=== PATIENT | male | born 1965 | race Caucasian/White ===

== ENCOUNTER → 2020-08-17 09:11 | Outpatient (BNVA) | payer OTHER, SELFPAY | PROVIDERS: PCP Internal Medicine; Visit Provider Urology | DX: N40.1 Benign prostatic hyperplasia with lower urinary tract symptoms (principal); R39.14 Feeling of incomplete bladder emptying; N32.89 Other specified disorders of bladder | CPT/HCPCS: 51798; 81002 ==

== ENCOUNTER → 2021-02-20 11:13 | Outpatient (BNVA) | payer OTHER, SELFPAY | PROVIDERS: PCP Internal Medicine; Visit Provider Urology ==

== ENCOUNTER 2021-03-26 06:03 | Day surgery (SDC) | payer OTHER, SELFPAY ==
[2021-03-26] VITALS (10 sets, daily range): BP systolic 96–121; BP diastolic 55–67; PULSE 78–88; RESP 15–17; TEMP 36.1–36.8; O2SAT 96–100; BMI 24.4
--- NOTE | 2021-03-26 07:07 | HO.ANESPROP2 ---
HPI - Anesthesia Eval Consult details Narrative: 56 M laser ablation prostate with green light PMFSH Active Problems Active Problems: All Active Problems (Updated 08/17/20 @ 09:49 by Mateus Grimm MD) Feeling of incomplete bladder emptying (Acute) Bladder wall thickening (Acute) Benign prostatic hyperplasia with lower urinary tract symptoms (Acute) Past Medical History Medical History Benign prostatic hyperplasia with lower urinary tract symptoms Bladder wall thickening Feeling of incomplete bladder emptying Scoliosis Functional capacity: independent ambulation Family History Family history of problems with anesthesia: No Surgical History Surgical History (Updated 03/26/21 @ 06:26 by Carlene Gaffney RN) Hx of colonoscopy History of Problems with Anesthesia: No Social History Social History Patient Tobacco Use Status: Never used Tobacco Use of substances other than those prescribed or required for medical reasons: No Are you DNR?: No Advance Directives: No Advance Directives Information Provided: Yes Meds Allergies Allergy/AdvReac Type Severity Reaction Status Date / Time No Known Allergies Allergy Verified 03/26/21 06:43 Active Medications: Current Medications Fentanyl (Fentanyl Citrate/Pf 100 Mcg/2 Ml Vial) 25 mcg IVPUSH Q5M PRN; Protocol PRN Reason: Pain, Moderate (Pain Scale 4-6 Promethazine HCl 12.5 mg/ (Sodium Chloride) 50.5 mls @ 202 mls/hr IV ONCE PRN PRN Reason: Nausea and Vomiting Home Medications Medication Instructions Recorded Confirmed Last Taken Type clotrimazole-betamethasone 1 appl TOPICAL BID 08/17/20 Unknown History %-0.05 % topical cream Exam Exam Date and Time: March 26, 2021 0707 Height,Weight and Vital Signs: Height 6 ft Weight 81.647 kg Last Vital Signs Temp 98.0 F 03/26/21 06:22 Pulse 88 03/26/21 06:22 Resp 16 03/26/21 06:22 BP 114/64 03/26/21 06:22 Pulse Ox 98 03/26/21 06:22 Airway Mallampati Class: III TM Dist: >3cm Neck ROM: Full (Neck spasms sometimes ) Loose/Missing/Broken Teeth: Yes (Chipped and missing , crowns ) Heart: rrr Lungs: bl breath sounds Assessment and Plan Assessment Anesthesia Assessment: Anesthesia Plan Discussed Final Anesthetic Review Family History of Problems with Anesthesia: No History of Problems with Anesthesia: No NPO: Yes ASA Class: II Final Preanesthetic Review: Annie Risks/Benef Reviewed Patient Risk: Intermediate Procedure Risk: Intermediate Anesthetic Plan Anesthetic Plan: GA Disposition: Standard PACU
[2021-03-26] MEDS: Lactated Ringers 1,000 ML 80 ML IVCONT (07:20)
--- NOTE | 2021-03-26 07:38 | MHC.SHP ---
Pre-Procedural Eval Section A Date of Service: 03/26/21 The patient is an INPATIENT: No Changes since office visit: No Cold of Flu in the past 2 weeks, No New Medical Problems, No Changes in Medication and No Patient answered all questions The History & Physical has been completed within 30 days and I have reviewed it.: Yes Section B Chief Complaint: benign prostatic hyperplasia Allergies: Allergies Allergy/AdvReac Type Severity Reaction Status Date / Time No Known Allergies Allergy Verified 03/26/21 06:43 Plan Diagnosis/Plan: Unchanged (green light laser prostatectomy) I have reviewed the history and physical and performed a pertinent physical examination on my patient. No changes have occurred unless specified.
--- NOTE | 2021-03-26 08:22 | P.OP_ITS ---
Operative Note Operative Note Date of Service: 03/26/21 Narrative: PreOperative Diagnosis: Bladder outlet obstruction Post Operative Diagnosis: Bladder outlet obstruction Procedure: GreenLight laser enucleation of the prostate Surgeon: Dr Mateus Grimm Anesthesia: General Indications for procedure: History of bladder outlet obstruction. Treated with alpha-eduardo and other medications. Still with symptoms. On cystoscopy in office has left lateral lobe impingement with high riding bladder neck. Recommendation for prostate procedure with laser enucleation of prostate. It has been discussed. Focus was placed on development of retrograde examination which is a normal part of this procedure. Procedure: After informed consent was verified the patient was brought to the operating room and placed in a supine position. Anesthesia was administered per protocol. Patient was placed in modified dorsal lithotomy position and prepped and draped in a sterile fashion. Safety pause time-out was confirmed. Antibiotics have been given. Twenty-four Georgian laser cystoscope was inserted per urethra. No abnormalities found the anterior posterior urethra. The bladder was filled on both ureteric orifices were seen in normal position away from our area of interest. Using a GreenLight laser settings of 80 w incisions were made at the 5 and 7 o'clock position. They were taken down and then laterally on each side. They were brought from the bladder neck down to the level of the veru. These defined the lateral aspects of the median lobe area. The median lobe was ablated and enucleated tissue removed. Once the median lobe area had been cleaned attention was directed to the lateral lobes. We started with the patient's left lateral lobe. Firstly the 05:00 o'clock groove was further developed. This was moved in the lateral position to undermine the tissue on the lateral side. Focus was then placed on the laser at the 1 o'clock position in developing a secondary groove down to the level of bladder fibers. The intervening tissue between these 2 grooves was removed with a combination of enucleation ablation working from the apex toward the bladder neck. A similar procedure was repeated on the patient's right-hand side. When this was completed debris and pieces of prostate removed from the bladder. Both ureteric orifices were reviewed again in shown to be patent in away from any areas of energy damage. The apical area was reviewed in any stray ooze was controlled. A 22 Georgian 30 cc balloon Redding catheter was placed over stylet into the bladder. Clear efflux was obtained. 30 cc was placed in the balloon and gentle traction was placed. A snap was used to hold tension once the patient will be moved and transported. Once transportation its finish this novel be removed. A belladonna and opiate suppository was placed for postprocedure pain management. He tolerated procedure well was extubated in the operating and transferred in a stable condition to the recovery area. Total laser power 113 kilojoules all, total lasing time 14 minutes 30 seconds Pathology: Prostate tissue Drains: Redding catheter
--- NOTE | 2021-03-26 08:24 | MHC.SHP ---
Pre-Procedural Eval Section A Date of Service: 03/26/21 Section B Chief Complaint: benign prostatic hyperplasia Details of Present Illness: U pH Relevant Family History (Specify if Yes): No Relevant Social History: None Present Medications: see Short Stay Collaborative assessment Medical History: No relevant PMH History of Previous Operations: No relevant previous surgery Allergies: Allergies Allergy/AdvReac Type Severity Reaction Status Date / Time No Known Allergies Allergy Verified 03/26/21 06:43 Review of Systems Sugical H&P ROS: Negative: Constitution, Cardiovascular, Respiratory, Neurological, Psychiatric, Hem-Onc, Allergic/Immunologic, Gastrointestinal, Genitourinary, Musculoskeletal, Integumentary, Endocrine and Eyes/Ears/Nose/Throat Exam Surgical H&P Exam: Normal: HEENT, Normal: Heart, Normal: Lungs, Normal: Extremities, Normal: Abdomen, Normal: Skin and Normal: Neurological Plan Diagnosis/Plan: Unchanged (GreenLight laser prostate) I have reviewed the history and physical and performed a pertinent physical examination on my patient. No changes have occurred unless specified.
[2021-03-26] MEDS: traMADoL HCL 50 MG TABLET PO (09:42)
== END 2021-03-26 11:02 | disposition home or self-care (01) ==
PROVIDERS: PCP Internal Medicine; Visit Provider Urology
PROC: (CPT 52648; principal; 2021-03-26 07:30)
DX: N40.1 Benign prostatic hyperplasia with lower urinary tract symptoms (principal); N32.0 Bladder-neck obstruction; R39.14 Feeling of incomplete bladder emptying; N32.89 Other specified disorders of bladder; M41.9 Scoliosis, unspecified
CPT/HCPCS: 52649; 88305; J1100; J1956; J2250; J2405; J3010

== ENCOUNTER → 2021-03-29 08:59 | Outpatient (BNVA) | payer OTHER, SELFPAY | PROVIDERS: PCP Internal Medicine; Visit Provider Urology | DX: R39.14 Feeling of incomplete bladder emptying (principal) | CPT/HCPCS: 51700; 51798 ==

== ENCOUNTER → 2021-05-08 14:42 | Outpatient (BNVA) | payer OTHER, SELFPAY | PROVIDERS: PCP Internal Medicine; Visit Provider Urology | DX: N40.0 Benign prostatic hyperplasia without lower urinary tract symptoms (principal); N32.89 Other specified disorders of bladder | CPT/HCPCS: 51798 ==

== ENCOUNTER 2022-02-14 09:26 | Outpatient (REF) | payer OTHER, SELFPAY ==
[2022-02-14 11:55] LABS: Prostate Specific Antigen 4.27 ng/mL (<0.05-4.0)
== END 2022-02-14 09:27 | disposition home or self-care (01) ==
LOC: HO.LAB 09:26
PROVIDERS: PCP Internal Medicine; Visit Provider Urology
DX: Z12.5 Encounter for screening for malignant neoplasm of prostate (principal); N40.1 Benign prostatic hyperplasia with lower urinary tract symptoms
CPT/HCPCS: 36415; 84153

== ENCOUNTER 2022-02-21 10:02 | Outpatient (AMB) | payer OTHER, SELFPAY ==
--- NOTE | 2022-02-18 13:46 | MHC.OFFVIS ---
Intake Intake Visit Reasons: 6 Month PSA(set) Intake Note: Patient Is Present for Telephone PSA Follow Up Urology Medication: Finasteride, Tamsulosin Blood Thinner: Allergies No Known Allergies Allergy (Verified 04/11/23 10:04) HPI HPI Comments History of Present Illness Details Juancarlos GOULD is a very pleasant male. They are a patient of Dr Hayes. They are seen in the office today for the following urologic conditions. - lower urinary tract symptoms - nephrolithiasis Telemedicine Evaluation 15 min Consultation Doximity John Video attempted PSA stable Will stop prostate medications Check PSA in 6 months Nephrolithiasis Stable Imaging - 02/25 CT bilateral 3 mm stone, 1.5 cm left renal cyst Lower Urinary Tract Symptoms: Current for the further evaluation of lower urinary tract symptoms Current treatment includes none - prostate intervention 02/25 GreenLight laser - pathology BPH with chronic inflammation Prostate Symptom Score 04/25 , Mild (0-8), Bother 3 06/23 , Mild (0-8), Bother 2. Results from testing include cystoscopy high riding bladder neck (median bar) 06/23 renal/bladder us Yes date 03/18/2018 bladder wall thickening PSA - 09/23 5.4, 02/26 4.3 Prior Prostate Score unknown. Prostate volume 30-50gm. Associated conditions CAD No CVA No diabetes No elevated PSA No erectile dysfunction No hematuria No renal insufficiency No urge incontinence No urinary retention No urinary tract infection No psychiatric diagnosis No Testing at next visit will include bladder scan. Treatment plan - PSA PFSH Medical History Scoliosis Feeling of incomplete bladder emptying Benign prostatic hyperplasia with lower urinary tract symptoms Bladder wall thickening Surgical History Hx of colonoscopy Social History Patient Tobacco Use Status: Never used Tobacco Assessment & Plan Assessment & Plan (1) Renal cyst: Code(s): N28.1 - Cyst of kidney, acquired (2) Benign prostatic hyperplasia with lower urinary tract symptoms: Code(s): N40.1 - Benign prostatic hyperplasia with lower urinary tract symptoms Plan Six-month follow-up imaging and PSA Orders: Orders US renal BI 6 Months N28.1 - Cyst of kidney, acquired PSA,Total (Free>4and<10) 6 Months N40.1 - Benign prostatic hyperplasia with lower urinary tract symptoms Patient Instructions: Imaging studies, laboratory and physical exam results were discussed and reviewed in detail. No major barriers to patient understanding were identified. An opportunity to ask questions regarding the treatment plan was provided. All questions were answered. The patient expressed understanding and agreement with the above treatment plan. The patient is aware they should contact our office by phone for worsening of their current condition or the appearance of new urologic symptoms. Compliance is encouraged with any medications and followup testing that is ordered. It is a privilege to participate in the urologic care of your patient. If you have any questions or concerns regarding treatment for the above conditions, or other urologic issues, please do not hesitate to contact me. The office telephone contact is [phone]. This note is constructed using voice recognition software. While every effort has been made to ensure accuracy baker pie errors may have been included. Yours sincerely, Dr Mateus Grimm MD, [facility] - Urology Providers of Expert, Compassionate Care for the Genitourinary System Telehealth Telehealth Location of provider rendering services: practice address Location of patient: address on file Patient Identification confirmed using: Name, : Yes Telehealth method: voice only Patient verbally consented to treatment: Yes Patient verbally consented to billing insurance company: Yes Patient informed of any privacy concerns related to visit: Yes Coding Level of Care Code Tele Est Pt Level 3 (85248) Diagnoses Renal cyst N28.1 Benign prostatic hyperplasia with lower urinary tract symptoms N40.1
== END 2022-02-21 15:45 | disposition home or self-care (01) ==
LOC: HO.HUSH 10:02
PROVIDERS: PCP Internal Medicine; Visit Provider Urology
DX: N28.1 Cyst of kidney, acquired (principal); N40.1 Benign prostatic hyperplasia with lower urinary tract symptoms
CPT/HCPCS: 99213; 99499

== ENCOUNTER 2022-08-15 15:41 | Outpatient (REF) | payer OTHER, SELFPAY ==
--- NOTE | ~2022-08-15 | US_ITS ---
EXAMINATION: US RETROPERITONEAL LIMITED (RENAL ONLY) CLINICAL INFORMATION: Cyst of kidney. COMPARISON: CT abdomen and pelvis 02/14/2021. Ultrasound abdomen complete 11/05/2019. TECHNIQUE: Real-time imaging of the kidneys. FINDINGS: RIGHT KIDNEY: 10.6 x 4.4 x 5.4 cm (SAG x AP x TRV). The kidney is normal in size, contour, and echogenicity. Renal cortical thickness is normal. No calculi or focal parenchymal lesions. No hydronephrosis. Cannot exclude a trace amount of perinephric fluid inferiorly, nonspecific. LEFT KIDNEY: 11.5 x 6.0 x 4.9 cm (SAG x AP x TRV). The kidney is normal in size, contour, and echogenicity. Renal cortical thickness is normal. No calculi or focal parenchymal lesions. No hydronephrosis. US/US renal BI IMPRESSION: 1. No renal calculi or hydronephrosis of either kidney. 2. Cannot exclude a trace amount of perinephric fluid inferiorly of the right kidney, nonspecific.
== END 2022-08-15 15:42 | disposition home or self-care (01) ==
LOC: HO.US 15:41
PROVIDERS: PCP Internal Medicine; Visit Provider Urology
DX: N28.1 Cyst of kidney, acquired (principal)
CPT/HCPCS: 76775

== ENCOUNTER 2023-04-11 09:41 | Outpatient (AMB) | payer OTHER, SELFPAY ==
--- NOTE | 2023-04-11 10:03 | MHC.OFFVIS ---
Intake Intake Visit Reasons: 6 month u/s (no showed last appt) Intake Note: Patient is Present for Follow Up US/PVR Urology Medication: Finasteride, Tamsulosin Antibiotic Allergies:None Blood Thinners: None PVR: 0 Allergies No Known Allergies Allergy (Verified 04/11/23 10:04) Medication List - Last Reconciled 04/11/23 by Mateus Grimm MD clotrimazole-betamethasone 1-0.05 % appl topical BID finasteride 5 mg PO DAILY 90 days rosuvastatin 10 mg PO DAILY tamsulosin 0.4 mg PO BEDTIME 90 days HPI HPI Comments History of Present Illness Details Juancarlos GOULD is a very pleasant male. They are a patient of Dr Hayes. They are seen in the office today for the following urologic conditions. - lower urinary tract symptoms - nephrolithiasis No recent lab work PVR 0 Last PSA year ago 4.3 Twelve month follow-up PSA Nephrolithiasis Stable Imaging - 02/25 CT bilateral 3 mm stone, 1.5 cm left renal cyst - 08/27 renal ultrasound normal Lower Urinary Tract Symptoms: Current for the further evaluation of lower urinary tract symptoms Current treatment includes none - prostate intervention 02/25 GreenLight laser - pathology BPH with chronic inflammation Prostate Symptom Score 04/25 , Mild (0-8), Bother 3 06/23 , Mild (0-8), Bother 2. Results from testing include cystoscopy high riding bladder neck (median bar) 06/23 renal/bladder us Yes date 03/18/2018 bladder wall thickening PSA - 09/23 5.4, 02/26 4.3 Prior Prostate Score unknown. Prostate volume 30-50gm. Testing at next visit will include bladder scan. Treatment plan - PSA PFSH Medical History Scoliosis Feeling of incomplete bladder emptying Benign prostatic hyperplasia with lower urinary tract symptoms Bladder wall thickening Surgical History Hx of colonoscopy Social History Patient Tobacco Use Status: Never used Tobacco Review of Systems Const Denies chills and Denies fever(s) Card Reports no additional complaints and Denies syncope Resp Denies cough GI Denies abdominal pain and Denies heartburn Reports as per HPI and Denies change in libido Neuro Denies syncope Psych Denies change in libido Endo Denies change in libido Physical Exam Const General: cooperative, healthy appearing, comfortable and no acute distress Orientation/consciousness: patient oriented x3 HEENT Face and sinus: Yes normal facial exam Mouth: moist mucous membranes Neck Neck: Yes normal visual inspection, Yes full ROM and Yes trachea midline Chest Chest palpation & inspection: normal inspection of the chest Resp Effort & Inspection: normal respiratory effort, able to speak in complete sentences and no respiratory distress GI Inspection: Yes normal to inspection Back/Spine/Pelvis Cervical Spine: normal cervical lordosis Thoracic/Lumbar Spine: thoracic and lumbar spine normal to inspection Skin General skin exam: no rashes or lesions noted Neuro General: patient oriented x3, gait normal, tone normal and moves all extremities Extrem General: Yes normal to inspection and Yes capillary refill normal Office Procedures Post Void Residual Post Residual Void Post Void Residual (PVR): 0 54250-Blyr Void Residual by ultrasound Assessment & Plan Assessment & Plan (1) Elevated PSA: Code(s): R97.20 - Elevated prostate specific antigen [PSA] (2) Benign prostatic hyperplasia with lower urinary tract symptoms: Code(s): N40.1 - Benign prostatic hyperplasia with lower urinary tract symptoms Plan Twelve month follow-up Orders: Orders Prostate Specific Antigen Today R97.20 - Elevated prostate specific antigen [PSA] AMB Post Void Residual by ultrasound Today N40.1 - Benign prostatic hyperplasia with lower urinary tract symptoms Prostate Specific Antigen 364 Days R97.20 - Elevated prostate specific antigen [PSA] Patient Instructions: Imaging studies, laboratory and physical exam results were discussed and reviewed in detail. No major barriers to patient understanding were identified. An opportunity to ask questions regarding the treatment plan was provided. All questions were answered. The patient expressed understanding and agreement with the above treatment plan. The patient is aware they should contact our office by phone for worsening of their current condition or the appearance of new urologic symptoms. Compliance is encouraged with any medications and followup testing that is ordered. It is a privilege to participate in the urologic care of your patient. If you have any questions or concerns regarding treatment for the above conditions, or other urologic issues, please do not hesitate to contact me. The office telephone contact is [phone]. This note is constructed using voice recognition software. While every effort has been made to ensure accuracy plaster form maker errors may have been included. Yours sincerely, Dr Mateus Grimm MD, [facility] - Urology Providers of Expert, Compassionate Care for the Genitourinary System Coding Level of Care Code Est Pt Level 4 (28078) Diagnoses Elevated PSA R97.20 Benign prostatic hyperplasia with lower urinary tract symptoms N40.1 CPT Codes Post Residual Void - PVR CPT Code: 20241-Lozp Void Residual by ultrasound ([id number])
== END 2023-04-11 10:21 | disposition home or self-care (01) ==
PROVIDERS: PCP Internal Medicine; Visit Provider Urology
DX: R97.20 Elevated prostate specific antigen [PSA] (principal); N40.1 Benign prostatic hyperplasia with lower urinary tract symptoms
CPT/HCPCS: 99213

== ENCOUNTER 2023-04-11 09:41 | Outpatient (REF) | payer OTHER, SELFPAY | END 2023-04-11 09:42 | disposition home or self-care (01) | LOC: HO.LAB 09:41 | PROVIDERS: PCP Internal Medicine; Visit Provider Urology | DX: Z12.5 Encounter for screening for malignant neoplasm of prostate (principal); N40.1 Benign prostatic hyperplasia with lower urinary tract symptoms; R97.20 Elevated prostate specific antigen [PSA] | CPT/HCPCS: 36415; 51798; 84153 ==

== ENCOUNTER 2023-07-10 13:54 | Outpatient (AMB) | payer OTHER, SELFPAY ==
--- NOTE | 2023-07-10 14:00 | A.OFFVIS_ITS ---
Intake Intake Visit Reasons: abnormal imaging Allergies No Known Allergies Allergy (Verified 04/11/23 10:04) HPI HPI Comments History of Present Illness Details Juancarlos GOULD is a very pleasant male. They are a patient of Dr Hayes. They are seen in the office today for the following urologic conditions. - lower urinary tract symptoms - nephrolithiasis CT scan - bladder base thickening with BPH Concern regarding question of bladder base thickening versus intrusion of prostate Will repeat cystoscopy Nephrolithiasis Stable Imaging - 02/25 CT bilateral 3 mm stone, 1.5 cm left renal cyst - 08/27 renal ultrasound normal Lower Urinary Tract Symptoms: Current for the further evaluation of lower urinary tract symptoms Current treatment includes none - prostate intervention 02/25 GreenLight laser - pathology BPH with chronic inflammation Prostate Symptom Score 04/25 , Mild (0-8), Bother 3 06/23 , Mild (0-8), Bother 2. Results from testing include cystoscopy high riding bladder neck (median bar) 06/23 renal/bladder us Yes date 03/18/2018 bladder wall thickening PSA - 09/23 5.4, 02/26 4.3, 04/30 3.0 Prior Prostate Score unknown. Prostate volume 30-50gm. Testing at next visit will include bladder scan. Treatment plan - PSA PFSH Medical History Scoliosis Feeling of incomplete bladder emptying Benign prostatic hyperplasia with lower urinary tract symptoms Bladder wall thickening Surgical History Hx of colonoscopy Social History Patient Tobacco Use Status: Never used Tobacco Review of Systems Const Denies chills and Denies fever(s) Card Reports no additional complaints and Denies syncope Resp Denies cough GI Denies abdominal pain and Denies heartburn Reports as per HPI and Denies change in libido Neuro Denies syncope Psych Denies change in libido Endo Denies change in libido Physical Exam Const General: cooperative, healthy appearing, comfortable and no acute distress Orientation/consciousness: patient oriented x3 HEENT Face and sinus: Yes normal facial exam Mouth: moist mucous membranes Neck Neck: Yes normal visual inspection, Yes full ROM and Yes trachea midline Chest Chest palpation & inspection: normal inspection of the chest Resp Effort & Inspection: normal respiratory effort, able to speak in complete sentences and no respiratory distress GI Inspection: Yes normal to inspection Back/Spine/Pelvis Cervical Spine: normal cervical lordosis Thoracic/Lumbar Spine: thoracic and lumbar spine normal to inspection Skin General skin exam: no rashes or lesions noted Neuro General: patient oriented x3, gait normal, tone normal and moves all extremities Extrem General: Yes normal to inspection and Yes capillary refill normal Assessment & Plan Assessment & Plan (1) Feeling of incomplete bladder emptying: Code(s): R39.14 - Feeling of incomplete bladder emptying (2) Benign prostatic hyperplasia with lower urinary tract symptoms: Code(s): N40.1 - Benign prostatic hyperplasia with lower urinary tract symptoms Plan Office cysto Patient Instructions: Imaging studies, laboratory and physical exam results were discussed and reviewed in detail. No major barriers to patient understanding were identified. An opportunity to ask questions regarding the treatment plan was provided. All questions were answered. The patient expressed understanding and agreement with the above treatment plan. The patient is aware they should contact our office by phone for worsening of their current condition or the appearance of new urologic symptoms. Compliance is encouraged with any medications and followup testing that is ordered. It is a privilege to participate in the urologic care of your patient. If you have any questions or concerns regarding treatment for the above conditions, or other urologic issues, please do not hesitate to contact me. The office t elephone contact is [phone]. This note is constructed using voice recognition software. While every effort has been made to ensure accuracy wind farm electrical systems designer errors may have been included. Yours sincerely, Dr Mateus Grimm MD, [facility] - Urology Providers of Expert, Compassionate Care for the Genitourinary System Coding Level of Care Code Est Pt Level 3 (61600) Diagnoses Feeling of incomplete bladder emptying R39.14 Benign prostatic hyperplasia with lower urinary tract symptoms N40.1
== END 2023-07-10 14:07 | disposition home or self-care (01) ==
PROVIDERS: PCP Internal Medicine; Visit Provider Urology
DX: N40.1 Benign prostatic hyperplasia with lower urinary tract symptoms (principal); R39.14 Feeling of incomplete bladder emptying
CPT/HCPCS: 99213

== ENCOUNTER → 2023-07-10 13:54 | Outpatient (BNVA) | payer OTHER, SELFPAY | PROVIDERS: PCP Internal Medicine; Visit Provider Urology ==

== ENCOUNTER 2023-08-28 10:48 | Outpatient (AMB) | payer OTHER, SELFPAY ==
--- NOTE | 2023-08-28 10:54 | MHC.OFFVIS ---
Intake Visit Reasons: cysto Intake Note: Patient is Present for Cystoscopy Urology Med: Tamsulosin, Finasteride Antibiotic Allergy: None Blood Thinner: None URO- G Disposable Cystoscope lot: [id number] exp:05/08/2026 Allergies No Known Allergies Allergy (Verified 08/28/23 10:57) HPI Comments Details: Juancarlos GOULD is a very pleasant male. They are a patient of Dr Hayes. They are seen in the office today for the following urologic conditions. - lower urinary tract symptoms - nephrolithiasis CT scan - bladder base thickening with BPH Here for repeat cystoscopy TURP defect Remains open Some mild regrowth This is likely what was seen on imaging Six month follow-up PVR Nephrolithiasis Stable Imaging - 02/25 CT bilateral 3 mm stone, 1.5 cm left renal cyst - 08/27 renal ultrasound normal Lower Urinary Tract Symptoms: Current for the further evaluation of lower urinary tract symptoms Current treatment includes none - prostate intervention 02/25 GreenLight laser - pathology BPH with chronic inflammation Prostate Symptom Score 04/25 , Mild (0-8), Bother 3 06/23 , Mild (0-8), Bother 2. Results from testing include Cystoscopy high riding bladder neck (median bar) 06/23 renal/bladder us Yes date 03/18/2018 bladder wall thickening PSA - 09/23 5.4, 02/26 4.3, 04/30 3.0 Prior Prostate Score unknown. Prostate volume 30-50gm. Testing at next visit will include bladder scan. Treatment plan - PSA PFSH Medical History Scoliosis Feeling of incomplete bladder emptying Benign prostatic hyperplasia with lower urinary tract symptoms Bladder wall thickening Surgical History Hx of colonoscopy Social History Patient Tobacco Use Status: Never used Tobacco Review of Systems Const Denies chills and Denies fever(s) Card Reports no additional complaints and Denies syncope Resp Denies cough GI Denies abdominal pain and Denies heartburn Reports as per HPI and Denies change in libido Neuro Denies syncope Psych Denies change in libido Endo Denies change in libido Physical Exam Const General: cooperative, healthy appearing, comfortable and no acute distress Orientation/consciousness: patient oriented x3 HEENT Face and sinus: Yes normal facial exam Mouth: moist mucous membranes Neck Neck: Yes normal visual inspection, Yes full ROM and Yes trachea midline Chest Chest palpation & inspection: normal inspection of the chest Resp Effort & Inspection: normal respiratory effort, able to speak in complete sentences and no respiratory distress GI Inspection: Yes normal to inspection Back/Spine/Pelvis Cervical Spine: normal cervical lordosis Thoracic/Lumbar Spine: thoracic and lumbar spine normal to inspection Skin General skin exam: no rashes or lesions noted Neuro General: patient oriented x3, gait normal, tone normal and moves all extremities Extrem General: Yes normal to inspection and Yes capillary refill normal Office Procedures Cystoscopy Consent Discussed risk and benefit or proposed procedure with the patient. Information consent for procedure given to the patient. Discussed technical aspects, risks, benefits and alternatives in full. Addressed all of the patient's questions and concerns regarding the procedure. The patient demonstrated knowledge and understanding. They wish to proceed with this procedure. Preparation The patient was prepped in the usual manner. A powder coater was present and in the room. Genitalia was prepped with betadine solution in a sterile manner. Lidocaine Jelly 2% was placed into the urethra and 16Fr flexible Olympus cystoscope was inserted into the meatus after adequate lubrication. Procedure Cystoscopy performed using a disposable Urovue digital 16 Uzbek cystoscope. Meatus circumcised Urethra anterior and posterior urethra normal Prostatic Urethra TURP defect Bladder examination with retroflexion of cystoscope Bladder Orifices normal shape and position Bladder Capacity meeting Trabeculations - Cellule Formation - Diverticulum Formation - Mucosal Erythema - Bladder Tumor - [id number] DISPOSABLE SCOPE URO-G FLEXIBLE SCOPE Procedure code (CPT) selection complete Office Meds lidocaine HCl 2 % mucosal jelly in applicator Performing Provider: Mateus Grimm MD Performing Location: [facility] Administered by: Susan Sorto RN on 08/28/23 11:07 Dose Route Admin Location Dispensed Lot Number Expiration Date ND Kennel Assistant 10 mL intra-urethral 10 mL nitrofurantoin monohydrate/macrocrystals 100 mg capsule Performing Provider: Mateus Grimm MD Performing Location: [facility] Administered by: Susan Sorto RN on 08/28/23 11:07 Dose Route Admin Location Dispensed Lot Number Expiration Date ND Kennel Assistant 100 mg PO 1 cap naproxen 500 mg tablet Performing Provider: aMteus Grimm MD Per[facility] Administered by: Susan Sorto RN on 08/28/23 11:07 Dose Route Admin Location Dispensed Lot Number Expiration Date NDC Kennel Assistant 500 mg PO 1 tab Results AMB Urinalysis, Automated UA Leukoctes 0 Esdras/uL Last Edit by DAPHNIE Christianson on 08/28/23 11:05 UA Nitrite Negative Last Edit by Katherine Braga A on 08/28/23 11:05 UA Urobilinogen 0.2 mg/dL Last Edit by Katherine Braga A on 08/28/23 11:05 UA Protein 15 mg/dL Last Edit by Katherine Braga A on 08/28/23 11:05 UA pH 6.0 Last Edit by Katherine Braga A on 08/28/23 11:05 UA Blood 0 Chano/uL Last Edit by Katherine Braga Gómez on 08/28/23 11:05 UA Specific Kellogg 1.020 Last Edit by Katherine Braga A on 08/28/23 11:05 UA Ketone Negative Last Edit by Katherine Braga Gómez on 08/28/23 11:05 UA Bilirubin 0 mg/dL Last Edit by Katherine Braga A on 08/28/23 11:05 UA Glucose 0 mg/dL Last Edit by Katherine Braga [facility] on 08/28/23 11:05 Results Reviewed Results Reviewed: Laboratory Last Values Urine pH (Auto) 6.0 08/28/23 10:58 Specific Kellogg (Auto) 1.020 08/28/23 10:58 Urine Protein (Auto) 15 mg/dL 08/28/23 10:58 Glucose (UA)(Auto) 0 mg/dL 08/28/23 10:58 Urine Ketones (Auto) Negative 08/28/23 10:58 Urine Blood (Auto) 0 Chano/uL 08/28/23 10:58 Urine Nitrite (Auto) Negative 08/28/23 10:58 Urine Bilirubin (Auto) 0 mg/dL 08/28/23 10:58 Urine Urobilinogen (Auto) 0.2 mg/dL 08/28/23 10:58 Leukocyte Esterase (Auto) 0 Esdras/uL 08/28/23 10:58 Assessment & Plan Assessment & Plan (1) Elevated PSA: Code(s): R97.20 - Elevated prostate specific antigen [PSA] Category: Medical (2) Benign prostatic hyperplasia with lower urinary tract symptoms: Code(s): N40.1 - Benign prostatic hyperplasia with lower urinary tract symptoms Category: Medical Plan Six-month follow-up PVR Orders: Orders AMB Cystoscopy 08/28/23 R39.14 - Feeling of incomplete bladder emptying AMB Urinalysis Automated 08/28/23 Z13.9 - Encounter for screening, unspecified Patient Instructions: Imaging studies, laboratory and physical exam results were discussed and reviewed in detail. No major barriers to patient understanding were identified. An opportunity to ask questions regarding the treatment plan was provided. All questions were answered. The patient expressed understanding and agreement with the above treatment plan. The patient is aware they should contact our office by phone for worsening of their current condition or the appearance of new urologic symptoms. Compliance is encouraged with any medications and followup testing that is ordered. It is a privilege to participate in the urologic care of your patient. If you have any questions or concerns regarding treatment for the above conditions, or other urologic issues, please do not hesitate to contact me. The office telephone contact is [phone]. This note is constructed using voice recognition software. While every effort has been made to ensure accuracy lunchroom food service supervisor errors may have been included. Yours sincerely, Dr Mateus Grimm MD, [facility] - Urology Providers of Expert, Compassionate Care for the Genitourinary System Coding Level of Care Code Est Pt Level 3 (96451) Diagnoses Elevated PSA R97.20 Benign prostatic hyperplasia with lower urinary tract symptoms N40.1 CPT Codes Cystoscopy - CPT: 63527-Bdossyavle ([id number])
== END 2023-08-28 11:24 | disposition home or self-care (01) ==
PROVIDERS: PCP Internal Medicine; Visit Provider Urology
DX: R39.14 Feeling of incomplete bladder emptying (principal); Z13.9 Encounter for screening, unspecified
CPT/HCPCS: 52000; 99213

== ENCOUNTER → 2023-08-28 10:48 | Outpatient (BNVA) | payer OTHER, SELFPAY | PROVIDERS: PCP Internal Medicine; Visit Provider Urology | DX: R97.20 Elevated prostate specific antigen [PSA] (principal); N40.1 Benign prostatic hyperplasia with lower urinary tract symptoms; R39.14 Feeling of incomplete bladder emptying | CPT/HCPCS: 52000; 81003 ==

== ENCOUNTER 2024-06-07 12:49 | Outpatient (REF) | payer OTHER, SELFPAY ==
[2024-06-07 14:59] LABS: Prostate Specific Antigen 3.32 ng/mL (<0.05-4.0)
--- OUTSIDE RECORDS SUMMARY | 2024-06-07 15:01 | XMS_ITS ---
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 Prediabetes: 5.7 - 6.4 Diabetes: >6.4 Glycemic control for adults with diabetes: <7.0 Urinalysis, Complete-[id number] Reviewed date:05/04/2024 06:59:10 PM Interpretation: Performing Lab:[facility], [address] [place] [address], Phone - [phone], Director - MDJodry Notes/Report: Specific [place] 1.018 1.005-1.030 pH 5.5 5.0-7.5 Urine-Color Yellow Yellow Appearance Clear Clear WBC Esterase Negative Negative Protein Negative Negative/Trace Glucose Negative Negative Ketones Negative Negative Occult Blood Negative Negative Bilirubin Negative Negative Urobilinogen,Semi-Qn 0.2 0.2-1.0 mg/dL Nitrite, Urine Negative Negative Microscopic Examination Micr oscopic follows if indicated. Microscopic Examination See below: Micr oscopic was indicated and was performed. WBC None seen 0 - 5 /hpf RBC None seen 0 - 2 /hpf Epithelial Cells (non renal) None seen 0 - 10 /hpf Casts None seen None seen /lpf Bacteria None seen None seen/Few CBC With Differential/Platel et-[id number] Reviewed date:05/04/2024 06:59:10 PM Interpretation: Performing Lab:[facility] [place], [address] [facility], [place], Phone - [phone], Director - Hyacinth Notes/Report: WBC 9.1 3.4-10.8 x10E3/uL RBC 4.80 4.14-5.80 x10E6/uL Hemoglobin 14.9 13.0-17.7 g/dL Hematocrit 44.8 37.5-51.0 % MCV 93 79-97 fL MCH 31.0 26.6-33.0 pg MCHC 33.3 31.5-35.7 g/dL RDW 12.7 11.6-15.4 % Platelets 145 150-450 x10E3/uL Neutrophils 60 Not Estab. % Lymphs 32 Not Estab. % Monocytes 5 Not Estab. % Eos 2 Not Estab. % Basos 1 Not Estab. % Neutrophils (Absolute) 5.4 1.4-7.0 x10E3/uL Lymphs (Absolute) 3.0 0.7-3.1 x10E3/uL Monocytes(Absolute) 0.5 0.1-0.9 x10E3/uL Eos (Absolute) 0.2 0.0-0.4 x10E3/uL Baso (Absolute) 0.1 0.0-0.2 x10E3/uL Immature Granulocytes 0 Not Estab. % Immature Grans (Abs) 0.0 0.0-0.1 x10E3/uL Vitamin D, 97-[id number] Reviewed date:05/04/2024 06:59:10 PM Interpretation: Performing Lab:[facility] [place], [address] [place] [address], [place], Phone - [phone], Director - Hyacinth Notes/Report: Vitamin D, 25-Hydroxy 21.1 30.0-100.0 ng/mL Vitamin D deficiency has been defined by the [place] [employer] and an Endocrine Society practice guideline as a level of serum 25-OH vitamin D less than 20 ng/mL (1,2). The Endocrine Society went on to further define vitamin D insufficiency as a level between 21 and 29 ng/mL (2). 1. IOM ([place] [employer]). 2010. Dietary reference intakes for calcium and D. [facility]: The National Academies Press. 2. Naty MF, Jerod NC, Hi LARA, et al. Evaluation, treatment, and prevention of vitamin D deficiency: an Endocrine Society clinical practice guideline. JCEM. 2010; 96(7):1911-30. Comp. Metabolic Panel (14)-3 [id number] Reviewed date:05/04/2024 06:59:10 PM Interpretation: Performing Lab:[facility] Mcmullen, [address] [facility], Phone - [phone], Director - MDJodry Notes/Report: Glucose 90 70-99 mg/dL BUN 18 8-27 mg/dL Creatinine 0.98 0.76-1.27 mg/dL eGFR 88 >59 mL/min/1.73 BUN/Creatinine Ratio 18 10-24 Sodium 140 134-144 mmol/L Potassium 4.1 3.5-5.2 mmol/L Chloride 100 96-106 mmol/L Carbon Dioxide, Total 25 20-29 mmol/L Calcium 9.2 8.6-10.2 mg/dL Protein, Total 7.4 6.0-8.5 g/dL Albumin 4.5 3.8-4.9 g/dL Globulin, Total 2.9 1.5-4.5 g/dL Bilirubin, Total 0.4 0.0-1.2 mg/dL Alkaline Phosphatase 73 44-121 IU/L AST (SGOT) 30 0-40 IU/L ALT (SGPT) 44 0-44 IU/L LP+Non-HDL Cholesterol-[id number] Reviewed date:05/04/2024 06:59:11 PM Interpretation: Performing Lab:Jason Mcmullen, [address] [facility], Phone - [phone], Director - MDJodry Notes/Report: Cholesterol, Total 127 100-199 mg/dL Triglycerides 202 0-149 mg/dL HDL Cholesterol 33 >39 mg/dL VLDL Cholesterol Faisal 33 5-40 mg/dL LDL Chol Calc ([facility]) 61 0-99 mg/dL Non-HDL Cholesterol 94 0-129 mg/dL HCV Antibody-[id number] Reviewed date:05/04/2024 06:59:11 PM Interpretation: Performing Lab:[facility] Mcmullen, [address] [facility], [place], Phone - [phone], Director - MDJodry Notes/Report: Hep C Virus Ab Non Reactive Non Reactive HCV antibody alone does not differentiate between previously resolved infection and active infection. Equivocal and Reactive HCV antibody results should be followed up with an HCV RNA test to support the diagnosis of active HCV infection. Reason For Referral Reason faxed Diagnosis 1 Viral wart, unspecif ied (B07.9) Referral Organization [facility] Referring Provider First Name Luigi Referring Provider Last Name Freddy Referring Provider Speciality Internal M edicine Referred Provider Ivan Brannon Referred Provider Specialty Dermatology General Notes [facility] Evelyn 04/08 01:09:41 PM >Completed referral form and fax[facility] to [facility] 03:15:52 PM >Received fax patient booked 06/14/24 at 10am with SONAL Odell. Called the patient, he was aware but needed to reschedule. Gave him the phone number to reschedule with facility Referral Priority Routine Referral Appointment Date 06/14/2024 REASON FOR VISIT Annual Wellness Medications Medication SIG (Take, Route, Frequency, Duration) Notes Start Date End Date Status Vitamin D3 2000 UNIT 1 capsule Orally On ce a day Not-Taking Fish Oil Not-Taking Lidocaine 5 % 1 application as nee ded Externally Three times a day 06/13/2023 Active Vitamin B 12 500 MCG 1 tablet Orally Onc e a day for 30 day(s) Active Azelastine-Fluticasone 137-50 MCG/ACT 1 spray in each nostril Nasally Twice a day for 30 days 02/25/2023 Not-Taking Rosuvastatin Calcium 10 MG TAKE 1 TABLET BY MOUTH EVERY DAY for 90 Active Immunizations Vaccine Route Administration Date Status Comme nts *Tdap IM Intramuscular 05/03/2024 Administered Social History Tobacco Use: Social History Observation Description Date Details (start date - stop date) Never Smoker NA - NA AUDIT-C (Standard) Question Answer Notes Did you have a drink containing alcohol in the p ast year? No Points 0 Interpretation Negative Tobacco Control (Standard) Question Answer Notes Tobacco use: Nonsmoker Vital Signs Temperature 97.1 degrees Fahrenheit 05/03/19 25 Blood pressure systolic 110 mm Hg 05/03/19 25 Blood pressure diastolic 64 mm Hg 025 Heart Rate 80 /min 05/03/2024 Height 6 ft in 05/03/2024 Weight 173 lbs 05/03/2024 BMI 23.46 kg/m2 05/03/2024 Oximetry 98 % 05/03/2024 Encounters Encounter Location Date Provider Diagnosis Luigi Hayes MD [address] [facility] [address] [place], [place] [id number] 05/03/2024 Luigi Hayes Encounter for genera l adult medical examination without abnormal findings Z00.00 ; Prediabetes R73.03 ; Mixed hyperlipidemia E78.2 ; Other idiopathic scoliosis, thoracic region M41.24 ; Cyst of kidney, acquired N28.1 ; Family history of malignant neoplasm of prostate Z80.42 ; Vitamin D deficiency, unspecified E55.9 ; Encounter for screening for malignant neoplasm of colon Z12.11 ; Encounter for screening for malignant neoplasm of prostate Z12.5 ; Encounter for screening for cardiovascular disorders Z13.6 ; Encounter for immunization Z23 ; Encounter for antibody response examination Z01.84 ; Encounter for screening for other viral diseases Z11.59 and Viral wart, unspecified B07.9 Assessments Encounter Date Diagnosis (ICD Code) Assessment Notes Treatment Notes Treatment Clinical Notes Section Notes 05/03/2024 Encounter for general adult medical examination without abnormal findings (ICD-10 - Z00.00) General healthcare up-to-date. Check routine labs 05/03/2024 Prediabetes (ICD-10 - R73.03) Stable on prior labs as reviewed. Continue exercise. He started to lift some weights to help his back and can continue same. 05/03/2024 Mixed hyperlipidemia (ICD-10 - E78.2) Stable on prior labs as reviewed with LDL less than 70. Continue primary prevention strategy. 05/03/2024 Other idiopathic scoliosis, thoracic region (ICD-10 - M41.24) Still at present. He still has occasional pain. He is trying to lift weights to help facilitate control the pain. Recommend continuing this and may be adding on yoga to help with core strengthening 05/03/2024 Cyst of kidney, acquired (ICD-10 - N28.1) Stable at present 05/03/2024 Family history of malignant neoplasm of prostate (ICD-10 - Z80.42) Check PSA given increased risk of malignancy of prostate 05/03/2024 Vitamin D deficiency, unspecified (ICD-10 - E55.9) Fair control on prior labs as reviewed. Recommend increase vitamin D supplementation for goal level of 50+ 05/03/2024 Encounter for screening for malignant neoplasm of colon (ICD-10 - Z12.11) Up-to-date on colon cancer screening 05/03/2024 Encounter for screening for malignant neoplasm of prostate (ICD-10 - Z12.5) Can check PSA has prostate cancer screening realizing the limitation of this test as a screening test 05/03/2024 Encounter for screening for cardiovascular disorders (ICD-10 - Z13.6) Blood pressure is stable. Can check for comorbidity of hyperlipidemia and hyperglycemia to further assess risk. 05/03/2024 Encounter for immunization (ICD-10 - Z23) Vaccines updated 05/03/2024 Encounter for antibody response examination (ICD-10 - Z01.84) Titers have been checked in the past and there is immunity to rubeola 05/03/2024 Encounter for screening for other viral diseases (ICD-10 - Z11.59) Can screen for hepatitis C as per general recommendation 05/03/2024 Viral wart, unspecified (ICD-10 - B07.9) 05/03/2024 Other This note was created with voice dictation recognition software and may contain errors of grammar and syntax. Also labs were reviewed with patient. Plan Of Treatment Medication Medication Name Sig Start Date Stop Date Notes Aspirin 81 MG 1 capsule Orally Once a day Referrals Referral Date Details 05/03/2024 05/03/2024, faxed, Mitul Brannon Next Appt Details Follow Up: 1 Year, Reason: A nnual Provider Name:Luigi Hayes , 11/01/2024 03:00:00 PM, [address] [place] [address], [phone], Provider Name:Luigi Hayes , 05/16/2025 03:30:00 PM, [address] [place] [address], [phone], Progress Notes * Juancarlos ALSTONDOB:1965 (59 yo M)Acc No.[id number]:05/03/2024 Progress Notes Patient:Juancarlos GOLDEN Provider:?Luigi Hayes MD :1965???Age:59 Y???Sex:Male Ian e:05/03/2024 Address:[facility] [id number] Subjective: * Chief Complaints: * ???Annual Wellness * HPI: ???Depression Screening:?PHQ-2 (2015 Edition)?Little interest or pleasure in doing things??Not at all ?Feeling down, depressed, or hopeless??Not at all ?Total Score?0 * Medical History:? * Surgical History:?wisdom charli th extraction Laser Enucleation of Prostate 03/2021 * Ocular Surgical History:? Ocular Surgical History revi ewed with the patient. * Hospitalization/Major Diagno stic Procedure:?Denies Past Hospitalization * Family History:?Spouse: cortez brown 63 yrs, Fatty liver, thyroid cancer.?Father: , Heart attack at 54, diagnosed with Unspecified heart disease.?Mother: alive 81 yrs, Hypertension, colitis, ventricular hypertrophy, diagnosed with Unspecified essential hypertension.?Son(s): alive 34 yrs, Healthy.?Daughter(s): alive 37 yrs, Healthy , low iron.?Paternal Grand Father: diagnosed with Family history of malignant neoplasm of prostate.?1 brother(s) , 1 sister(s) - healthy. 1 son(s) , 1 daughter(s) - healthy. .? Mother: Basal Septal LVH. * Social History:?Tobacco Use:?Tobacco Control (Standard)?Tobacco use:?Nonsmoker ???Drugs/Alcohol:?Drugs?Have you used drugs other than those for medical reasons in the past 12 months??No ?Caffeine?Intake:?2-3 cups per day ?Do you smoke marijuana?: Denies. ?Do you drink alcohol?: No. ???Miscellaneous:?Exercise: yes, walking. 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 ???Household:?Household?Marital status:?Drug/Alcohol:?AUDIT-C (Standard)?Did you have a drink containing alcohol in the past year??No ?Points?0 ?Interpretation?Negative * Medications:?TakingAspirin 8 1 MG Capsule 1 capsule Orally Once a day Vitamin B 12 500 MCG Tablet 1 tablet Orally Once a day Lidocaine 5 % Ointment 1 application as needed Externally Three times a day Rosuvastatin Calcium 10 MG Tablet TAKE 1 TABLET BY MOUTH EVERY DAY Taking Aspirin 81 MG Capsule 1 capsule Orally Once a day Taking Vitamin B 12 500 MCG Tablet 1 tablet Orally Once a day Taking Lidocaine 5 % Ointment 1 application as needed Externally Three times a day Taking Rosuvastatin Calcium 10 MG Tablet TAKE 1 TABLET BY MOUTH EVERY DAY Not-Taking/PRNAzelastine-Fluticasone 137-50 MCG/ACT Suspension 1 spray in each nostril Nasally Twice a day Fish Oil Vitamin D3 2000 UNIT Capsule 1 capsule Orally Once a day Medication List reviewed and reconciled with the patientNot-Taking/PRN Azelastine-Fluticasone 137-50 MCG/ACT Suspension 1 spray in each nostril Nasally Twice a day Not-Taking/PRN Fish Oil Not-Taking/PRN Vitamin D3 2000 UNIT Capsule 1 capsule Orally Once a day Medication List reviewed and reconciled with the patient * Allergies:?N.K.D.A.no[Allerg ies Verified] Objective: * Vitals:?Temp:97.1F, HR:80/mi n, BP:Sitting Right Arm: 110/64mm Hg, Wt:173lbs, BMI:23.46Index, Ht:6 ft, Oxygen sat %:98%. Past Vitals:* 06/13/2023 Temp:97.6F, HR:70/min, Wt:16 9.90lbs, BMI:23.04Index, Ht:6 ft, Oxygen sat %:98% * 02/25/2023 Temp:97.2F, HR:77/min, BP:11 0/68mm Hg, Wt:170lbs, BMI:23.05Index, Ht:6 ft, Oxygen sat %:99% * 01/24/2023 Temp:94.9F, HR:77/min, BP: 1 04/90 mm Hg,Sitting Right Arm:116/70mm Hg, Wt:171.6lbs, BMI:23.27Index, Ht:6 ft, Oxygen sat %:99% * ???Past Orders: Lab:COMPLETE CBC WITH DIFF * Collection Date 09/04/2022 07/19/2022 10/26/2020 9 Collection Time 10:49 AM 09:09 AM 09:12 AM 10:45 AM Order Date 09/04/2022 07/19/2022 10/25/2020 09/09/2018 WBC 7.6 (Ref Range: (4.0-11.0) K/MM3) 10.1 (Ref Range: (4.0-11.0) K/MM3) 7.8 (Ref Range: (4.0-11.0) K/MM3) 9.9 (Ref Range: (4.0-11.0) K/MM3) RBC 4.72 (Ref Range: (4.70-6.10) M/MM3) 4.59?L (Ref Range: (4.70-6.10) M/MM3) 4.75 (Ref Range: (4.70-6.10) M/MM3) 4.76 (Ref Range: (4.70-6.10) M/MM3) HGB 14.9 (Ref Range: (13.7-17.1) GM/DL) 14.4 (Ref Range: (13.7-17.1) GM/DL) 14.9 (Ref Range: (13.7-17.1) GM/DL) 14.9 (Ref Range: (13.7-17.1) GM/DL) HCT 44.9 (Ref Range: (40.5-50.0) %) 46.0 (Ref Range: (40.5-50.0) %) 43.0 (Ref Range: (40.5-50.0) %) 44.5 (Ref Range: (40.5-50.0) %) MCV 95.1?H (Ref Range: (80.0-94.0) FL) 100.2?H (Ref Range: (80.0-94.0) FL) 90.5 (Ref Range: (80.0-94.0) FL) 93.5 (Ref Range: (80.0-94.0) FL) MCH 31.6 (Ref Range: (27.0-34.0) PG) 31.4 (Ref Range: (27.0-34.0) PG) 31.4 (Ref Range: (27.0-34.0) PG) 31.3 (Ref Range: (27.0-34.0) PG) MCHC 33.2 (Ref Range: (33.0-37.0) g/dL) 31.3?L (Ref Range: (33.0-37.0) g/dL) 34.7 (Ref Range: (33.0-37.0) g/dL) 33.5 (Ref Range: (33.0-37.0) g/dL) MPV 12.0 (Ref Range: (9.4-12.4) FL) 12.0 (Ref Range: (9.4-12.4) FL) 12.4 (Ref Range: (9.4-12.4) FL) 12.8?H (Ref Range: (9.4-12.4) FL) RDW-SD 45.9 (Ref Range: (<47.0) FL) 51.2?H (Ref Range: (<47.0) FL) 42.6 (Ref Range: (<47.0) FL) 44.9 (Ref Range: (<47.0) FL) ABS. NRBC 0.0 (Ref Range: K/MM3) 0.0 (Ref Range: K/MM3) 0.0 (Ref Range: K/MM3) 0.0 (Ref Range: K/MM3) Imm Gran 0.3 (Ref Range: %) 0.4 (Ref Range: %) 0.1 (Ref Range: %) 0.5 (Ref Range: (0.0-0.6) %) Abs. Imm Gran 0.0 (Ref Range: K/MM3) 0.0 (Ref Range: K/MM3) 0.0 (Ref Range: K/MM3) 0.1 (Ref Range: K/MM3) PLT 153 (Ref Range: (150-460) K/MM3) 141?L (Ref Range: (150-460) K/MM3) 141?L (Ref Range: (150-460) K/MM3) 148?L (Ref Range: (150-460) K/MM3) AUTOMATED NRBC 0.0 (Ref Range: #/100 WBC'S) 0.0 (Ref Range: #/100 WBC'S) 0.0 (Ref Range: #/100 WBC'S) 0.0 (Ref Range: #/100 WBC'S) NEUT 57.5 (Ref Range: (44-76) %) 61.8 (Ref Range: (44-76) %) 46.2 (Ref Range: (44-76) %) 71.8 (Ref Range: (44-76) %) LYMPH 31.0 (Ref Range: (15-43) %) 29.1 (Ref Range: (15-43) %) 43.2?H (Ref Range: (15-43) %) 19.9 (Ref Range: (15-43) %) MONOCYTE 8.5 (Ref Range: (4.5-10.5) %) 7.1 (Ref Range: (4.5-10.5) %) 8.1 (Ref Range: (4.5-10.5) %) 6.9 (Ref Range: (4.5-10.5) %) EO 2.0 (Ref Range: (0-6) %) 1.0 (Ref Range: (0-6) %) 1.8 (Ref Range: (0-6) %) 0.5 (Ref Range: (0-6) %) LYMPH # 2.4 (Ref Range: (0.8-3.1) K/MM3) 2.9 (Ref Range: (0.8-3.1) K/MM3) 3.4?H (Ref Range: (0.8-3.1) K/MM3) 2.0 (Ref Range: (0.8-3.1) K/MM3) BASO 0.7 (Ref Range: (0-2) %) 0.6 (Ref Range: (0-2) %) 0.6 (Ref Range: (0-2) %) 0.4 (Ref Range: (0-2) %) MONO# 0.7 (Ref Range: (0.4-1.3) K/MM3) 0.7 (Ref Range: (0.4-1.3) K/MM3) 0.6 (Ref Range: (0.4-1.3) K/MM3) 0.7 (Ref Range: (0.4-1.3) K/MM3) NEUT # 4.4 (Ref Range: (1.3-7.0) K/MM3) 6.2 (Ref Range: (1.3-7.0) K/MM3) 3.6 (Ref Range: (1.3-7.0) K/MM3) 7.1?H (Ref Range: (1.3-7.0) K/MM3) EO # 0.2 (Ref Range: (0.0-0.4) K/MM3) 0.1 (Ref Range: (0.0-0.4) K/MM3) 0.1 (Ref Range: (0.0-0.4) K/MM3) 0.1 (Ref Range: (0.0-0.4) K/MM3) BASO # 0.1 (Ref Range: (0.0-0.1) K/MM3) 0.1 (Ref Range: (0.0-0.1) K/MM3) 0.1 (Ref Range: (0.0-0.1) K/MM3) 0.0 (Ref Range: (0.0-0.1) K/MM3) * Lab:COMPREHENSIVE METABOLIC PANEL * Collection Date 01/24/2023 07/19/2022 10/26/2020 0 Collection Time 09:52 AM 09:09 AM 09:12 AM 07:54 AM Order Date 01/24/2023 07/19/2022 10/25/2020 10/28/2019 ALBUMIN 4.6 (Ref Range: (3.4-4.8) GM/DL) 4.8 (Ref Range: (3.4-4.8) GM/DL) 4.3 (Ref Range: (3.4-4.8) GM/DL) 4.4 (Ref Range: (3.4-4.8) GM/DL) ALK PHOS 73 (Ref Range: (40-129) U/L) 72 (Ref Range: (40-129) U/L) 76 (Ref Range: (40-129) U/L) 74 (Ref Range: (40-129) U/L) BILIRUBIN,TOTAL 0.5 (Ref Range: (0-1.2) MG/DL) 0.4 (Ref Range: (0-1.2) MG/DL) 0.4 (Ref Range: (0-1.2) MG/DL) 0.3 (Ref Range: (0-1.2) MG/DL) CALCIUM 9.3 (Ref Range: (8.6-10.5) MG/DL) 9.4 (Ref Range: (8.6-10.5) MG/DL) 9.6 (Ref Range: (8.6-10.5) MG/DL) 9.6 (Ref Range: (8.6-10.5) MG/DL) BICARBONATE 27 (Ref Range: (22-29) MMOL/L) 28 (Ref Range: (22-29) MMOL/L) 27 (Ref Range: (22-29) MMOL/L) 28 (Ref Range: (22-29) MMOL/L) CHLORIDE 105 (Ref Range: (98-107) MMOL/L) 104 (Ref Range: (98-107) MMOL/L) 103 (Ref Range: (98-107) MMOL/L) 101 (Ref Range: (98-107) MMOL/L) EST GFR NON AMERI 82 (Ref Range: ML/MIN/1.73 M2) 81 (Ref Range: ML/MIN/1.73 M2) 78 (Ref Range: ML/MIN/1.73 M2) 75 (Ref Range: ML/MIN/1.73 M2) EST GFR NR NR 90 (Ref Range: ML/MIN/1.73 M2) 87 (Ref Range: ML/MIN/1.73 M2) CREATININE 1.1 (Ref Range: (0.7-1.2) MG/DL) 1.1 (Ref Range: (0.7-1.2) MG/DL) 1.1 (Ref Range: (0.7-1.2) MG/DL) 1.1 (Ref Range: (0.7-1.2) MG/DL) ANION GAP 9 (Ref Range: (4-17)) 10 (Ref Range: (4-17)) 10 (Ref Range: (4-17)) 11 (Ref Range: (4-17)) GLUCOSE 108?H (Ref Range: (70-99) MG/DL) 111?H (Ref Range: (70-99) MG/DL) 103?H (Ref Range: (70-99) MG/DL) 100?H (Ref Range: (70-99) MG/DL) AST 23 (Ref Range: (0-40) U/L) 31 (Ref Range: (0-40) U/L) 21 (Ref Range: (0-40) U/L) 20 (Ref Range: (0-38) U/L) ALT 26 (Ref Range: (0-41) U/L) 41 (Ref Range: (0-41) U/L) 27 (Ref Range: (0-41) U/L) 27 (Ref Range: (0-41) U/L) POTASSIUM 4.2 (Ref Range: (3.6-5.2) MMOL/L) 4.4 (Ref Range: (3.6-5.2) MMOL/L) 4.1 (Ref Range: (3.6-5.2) MMOL/L) 4.2 (Ref Range: (3.6-5.2) MMOL/L) SODIUM 141 (Ref Range: (133-145) MMOL/L) 142 (Ref Range: (133-145) MMOL/L) 140 (Ref Range: (133-145) MMOL/L) 140 (Ref Range: (133-145) MMOL/L) TOTAL PROTEIN 7.4 (Ref Range: (6.2-8.2) GM/DL) 7.5 (Ref Range: (6.2-8.2) GM/DL) 7.4 (Ref Range: (6.2-8.2) GM/DL) 7.3 (Ref Range: (6.2-8.2) GM/DL) BUN 17 (Ref Range: (6-20) MG/DL) 17 (Ref Range: (6-20) MG/DL) 16 (Ref Range: (6-20) MG/DL) 11 (Ref Range: (6-20) MG/DL) AG RATIO 1.6 1.8 1.4 1.5 * Lab:HEMOGLOBIN A1C * Collection Date 01/24/2023 07/19/2022 11/10/2019 Collection Time 09:52 AM 09:09 AM 07:54 AM Order Date 01/24/2023 07/19/2022 10/28/2019 HEMOGLOBIN A1C 5.9?H (Ref Range: (4.0-5.6) %) 5.8?H (Ref Range: (4.0-5.6) %) 5.6 (Ref Range: (4.0-5.6) %) * Lab:25OH VITAMIN D * Collection Date 01/24/2023 07/19/2022 11/10/2019 9 Collection Time 09:52 AM 09:09 AM 07:54 AM 10:45 AM Order Date 01/24/2023 07/19/2022 10/28/2019 09/09/2018 25OH VITAMIN D 24.0 (Ref Range: (20-50) NG/ML) 17.5?L (Ref Range: (20-50) NG/ML) 22.1 (Ref Range: (20-50) NG/ML) 19.3?L (Ref Range: (20-50) NG/ML) ???Lab:VITAMIN B12 (Order Date - 09/04/2022) (Collection Date & Time - 09/04/2022 10:49 AM)?ValueReference Range?VITAMIN [id number]) - pg/mL * Lab:LIPID PANEL W REFLEX TO DLDL * Collection Date 01/24/2023 07/19/2022 11/10/2019 9 Collection Time 09:52 AM 09:09 AM 07:54 AM 10:45 AM Order Date 01/24/2023 07/19/2022 10/28/2019 09/09/2018 LDL CHOLESTEROL, CALCULAT 52 (Ref Range: (0-130) MG/DL) 63 (Ref Range: (0-130) MG/DL) 103 (Ref Range: (0-130) MG/DL) 113 (Ref Range: (0-130) MG/DL) CHOLESTEROL, TOTAL 113 (Ref Range: (<200) MG/DL) 127 (Ref Range: (<200) MG/DL) 171 (Ref Range: (<200) MG/DL) 187 (Ref Range: (<200) MG/DL) HDL CHOL 40 (Ref Range: (>39) MG/DL) 40 (Ref Range: (>39) MG/DL) 39?L (Ref Range: (>39) MG/DL) 33?L (Ref Range: (>39) MG/DL) NON HDL CHOLESTEROL (CALC 73 (Ref Range: (<160) MG/DL) 87 (Ref Range: (<160) MG/DL) 132 (Ref Range: (<160) MG/DL) 154 (Ref Range: (<160) MG/DL) TRIGLYCERIDES 104 (Ref Range: (<150) MG/DL) 118 (Ref Range: (<150) MG/DL) 143 (Ref Range: (<150) MG/DL) 206?H (Ref Range: (<150) MG/DL) CHOLESTEROL/HDL RATIO (CA 2.8 (Ref Range: (<5.0)) 3.2 (Ref Range: (<5.0)) 4.4 (Ref Range: (<5.0)) 5.7?H (Ref Range: (<5.0)) * Lab:COMPLETE URINALYSIS * Collection Date 07/19/2022 10/29/2018 09/09/2018 8 Collection Time 09:09 AM 09:00 AM 10:45 AM 03:55 PM Order Date 07/19/2022 10/28/2018 09/09/2018 01/28/2018 APPEAR/COLOR YELLOW YELLOW YELLOW LIGHT YELLOW SP. GRAVITY 1.020 (Ref Range: (1.002-1.030)) 1.026 (Ref Range: (1.002-1.030)) 1.025 (Ref Range: (1.002-1.030)) 1.013 (Ref Range: (1.002-1.030)) URINE PH 6.0 (Ref Range: (5.0-8.0)) 6.0 (Ref Range: (5.0-8.0)) 5.0 (Ref Range: (5.0-8.0)) 6.0 (Ref Range: (4.0-8.0)) URINE ALBUMIN NEGATIVE (Ref Range: (NEG)) NEGATIVE (Ref Range: (NEG)) NEGATIVE (Ref Range: (NEG)) NEGATIVE (Ref Range: (NEG)) URINE GLUCOSE NEGATIVE (Ref Range: (NEG)) NEGATIVE (Ref Range: (NEG)) NEGATIVE (Ref Range: (NEG)) NEGATIVE (Ref Range: (NEG)) URINE KETONES NEGATIVE (Ref Range: (NEG)) NEGATIVE (Ref Range: (NEG)) NEGATIVE (Ref Range: (NEG)) NEGATIVE (Ref Range: (NEG)) URINE BILIRUBIN NEGATIVE (Ref Range: (NEG)) NEGATIVE (Ref Range: (NEG)) NEGATIVE (Ref Range: (NEG)) NEGATIVE (Ref Range: (NEG)) URINE HEMOGLOBN NEGATIVE (Ref Range: (NEG)) NEGATIVE (Ref Range: (NEG)) NEGATIVE (Ref Range: (NEG)) NEGATIVE (Ref Range: (NEG)) URINE NITRITE NEGATIVE (Ref Range: (NEG)) NEGATIVE (Ref Range: (NEG)) NEGATIVE (Ref Range: (NEG)) NEGATIVE (Ref Range: (NEG)) URINE LEUKOCYTE NEGATIVE (Ref Range: (NEG)) NEGATIVE (Ref Range: (NEG)) NEGATIVE (Ref Range: (NEG)) NEGATIVE (Ref Range: (NEG)) UROBILINOGEN NORMAL (Ref Range: (NORM) MG/DL) NORMAL (Ref Range: (NORM) MG/DL) NORMAL (Ref Range: (NORM) MG/DL) NORMAL (Ref Range: (NORM) MG/DL) URINE WBC'S 2 (Ref Range: (0-5) /HPF) 2 (Ref Range: (0-5) /HPF) 1 (Ref Range: (0-5) /HPF) <1 (Ref Range: (0-5) /HPF) URINE RBC'S 1 (Ref Range: (0-3) /HPF) 1 (Ref Range: (<3) /HPF) 1 (Ref Range: (<3) /HPF) 1 (Ref Range: (<3) /HPF) MUCUS SLIGHT (Ref Range: /LPF) SLIGHT (Ref Range: /LPF) SLIGHT (Ref Range: /LPF) NR SQUAMOUS EPITH <1 (Ref Range: (0-8) /HPF) <1 (Ref Range: /HPF) NR NR CALCIUM OXAL NR SLIGHT (Ref Range: /HPF) NR NR * Lab:PSA * Collection Date 07/19/2022 08/28/2017 08/08/2016 Collection Time 09:09 AM 10:49 AM 10:10 AM Order Date 07/19/2022 08/28/2017 08/08/2016 PSA 2.2 (Ref Range: (0-4) NG/ML) 5.8?H (Ref Range: (0-4) NG/ML) 4.9?H (Ref Range: (0-4) NG/ML) ???Lab:PSA Total+% Free-[id number] (Order Date - 06/27/2023) (Collection Date & Time - 06/27/2023 11:40 AM)?ValueReference Range?Prostate Specific Ag 3.30.0-4.0 - ng/mL?PSA, Free0.52N/A - ng/mL?% Free PSA15.8- % ???Lab:[facility] (MEASLES, MUMPS, RUBELLA) IGG TITER (Order Date - 09/09/2018) (Collection Date & Time -09/09/2018 10:45 AM)?ValueReference Range ?MUMPS AB IGGPOSITIVE-?RUBELLA IGG ANTIBODYPOSITIVE- ?RUBEOLA AB IGGPOSITIVE- * Examination: ???General Examination: ?GENERAL APPEARANCE:?Age appropriate, in no acute distress, well developed, well nourished.?HEAD:? atraumatic, normocephalic.?EYES:? sclera anicteric, extraocular movement full and smooth.?HEART:?regular rate and rhythm, S1, S2 normal.?LUNGS:?clear to auscultation bilaterally.?EXTREMITIES:?no clubbing, cyanosis, or edema.?NEUROLOGIC:?alert and oriented, gait normal.?PSYCH:? good eye contact, speech clear.? Assessment: * Assessment: 1.?Encounter for general serenity lt medical examination without abnormal findings - Z00.00 (Primary)???2.?Prediabetes - R73.03???3.?Mixed hyperlipidemia - E78.2???4.?Other idiopathic scoliosis, thoracic region - M41.24???5. Cyst of kidney, acquired - N28.1???6.?Family history of malignant neoplasm of prostate - Z80.42???7.?Vitamin D deficiency, unspecified - E55.9???8.?Encounter for screening for malignant neoplasm of colon - Z12.11???9. Encounter for screening for malignant neoplasm of prostate - Z12.5???10.?Encounter for screening for cardiovascular disorders - Z13.6???11.?Encounter for immunization - Z23???12.?Encounter for antibody response examination - Z01.84? ?13.?Encounter for screening for other viral diseases - Z11.59???14.?Viral wart, unspecified - B07.9??? Plan: * Treatment: ? Value Reference Range ?Specific [place] 1.018 1.005- 1.030 - * ?pH 5.5 5.0-7.5 - * ?Urine-Color Yellow Yellow - * ?Appearance Clear Clear - * ?WBC Esterase Negative Negative - * ?Protein Negative Negative/Trace - * ?Glucose Negative Negative - * ?Ketones Negative Negative - * ?Occult Blood Negative Negative - * ?Bilirubin Negative Negative - * ?Urobilinogen,Semi-Qn 0.2 0. 2-1.0 - mg/dL * ?Nitrite, Urine Negative Negative - * ?WBC None seen 0 - 5 - /hpf * ?RBC None seen 0 - 2 - /hpf * ?Epithelial Cells (non renal) None seen 0 - 10 - /hpf * ?Casts None seen None seen - /lp f * ?Bacteria None seen None seen/Few - * ?Microscopic Examination See below: - * This lab was reviewed by Asad Hayes on 05/04/2024 at 18:59 PM EST ?LAB: CBC With Differential/Platelet-[id number] (Collection Date & Time - 05/03/2024 04:23 PM)* ? Value Reference Range ?WBC 9.1 3.4-10.8 - x10E 3/uL * ?RBC 4.80 4.14-5.80 - x10 E6/uL * ?Hemoglobin 14.9 13.0-17.7 - g/dL * ?Hematocrit 44.8 37.5-51.0 - % * ?MCV 93 79-97 - fL * ?MCH 31.0 26.6-33.0 - pg * ?MCHC 33.3 31.5-35.7 - g/d L * ?RDW 12.7 11.6-15.4 - % * ?Platelets 145 L 150-450 - x10 E3/uL * ?Neutrophils 60 Not Estab. - % * ?Lymphs 32 Not Estab. - % * ?Monocytes 5 Not Estab. - % * ?Eos 2 Not Estab. - % * ?Basos 1 Not Estab. - % * ?Neutrophils (Absolute) 5.4 1.4-7.0 - x10E3/uL * ?Lymphs (Absolute) 3.0 0.7-3 .1 - x10E3/uL * ?Monocytes(Absolute) 0.5 0.1 -0.9 - x10E3/uL * ?Eos (Absolute) 0.2 0.0-0.4 - x10E3/uL * ?Baso (Absolute) 0.1 0.0-0.2 - x10E3/uL * ?Immature Granulocytes 0 N ot Estab. - % * ?Immature Grans (Abs) 0.0 0. 0-0.1 - x10E3/uL * This lab was reviewed by Asad Hayes on 05/04/2024 at 18:59 PM EST ?LAB: Comp. Metabolic Panel ([id number] (Collection Date & Time - 05/03/2024 04:23 PM)* ? Value Reference Range ?Glucose 90 70-99 - mg/dL * ?BUN 18 8-27 - mg/dL * ?Creatinine 0.98 0.76-1.27 - mg/dL * ?BUN/Creatinine Ratio 18 10 -24 - * ?Sodium 140 134-144 - mmol/ L * ?Potassium 4.1 3.5-5.2 - mmo l/L * ?Chloride 100 96-106 - mmol/ L * ?Carbon Dioxide, Total 25 2 0-29 - mmol/L * ?Calcium 9.2 8.6-10.2 - mg/d L * ?Protein, Total 7.4 6.0-8.5 - g/dL * ?Albumin 4.5 3.8-4.9 - g/dL * ?Globulin, Total 2.9 1.5-4.5 - g/dL * ?Bilirubin, Total 0.4 0.0-1. 2 - mg/dL * ?Alkaline Phosphatase 73 44 -121 - IU/L * ?AST (SGOT) 30 0-40 - IU/L * ?ALT (SGPT) 44 0-44 - IU/L * ?eGFR 88 >59 - mL/min/1. 73 * This lab was reviewed by Asad Hayes on 05/04/2024 at 18:59 PM EST ?LAB: LP+Non-HDL Cholesterol-[id number] (Collection Date & Time - 05/03/2024 04:23 PM)* ? Value Reference Range ?Cholesterol, Total 127 100- 199 - mg/dL * ?Triglycerides 202 H 0-149 - m g/dL * ?HDL Cholesterol 33 L >39 - m g/dL * ?VLDL Cholesterol Faisal 33 5- 40 - mg/dL * ?LDL Chol Calc ([facility]) 61 0-9 9 - mg/dL * ?Non-HDL Cholesterol 94 0-1 29 - mg/dL * This lab was reviewed by Asad Hayes on 05/04/2024 at 18:59 PM EST Clinical Notes: General healthcare up-to-date. Check routine labs?? 2.?Prediabetes?LAB: Hemoglobin [id number] (Collection Date & Time - 05/03/2024 04:23 PM)* ? Value Reference Range ?Hemoglobin A1c 6.0 H 4.8-5.6 - % * This lab was reviewed by Asad Hayes on 05/04/2024 at 18:59 PM EST Clinical Notes: Stable on prior labs as reviewed. Continue exercise. He started to lift some weights to help his back and can continue same.??3.?Mixed hyperlipidemia? Clinical Notes: Stable on prior labs as reviewed with LDL less than 70. Continue primary preventionstrategy.??4.?Other idiopathic scoliosis, thoracic region? Clinical Notes: Still at present. He still has occasional pain. He is trying to lift weights to help facilitate control the pain. Recommend continuing this and may be adding on yoga to help with corestrengthening??5.?Cyst of kidney, acquired? Clinical Notes: Stable at present??6.?Family history of malignant neoplasm of prostate? Clinical Notes: Check PSA given increased risk of malignancy of prostate?? 7.?Vitamin D deficiency, unspecified?LAB: Vitamin D, [id number] (Collection Date & Time - 05/03/2024 04:23 PM)* ? Value Reference Range ?Vitamin D, 25-Hydroxy 21.1 L 3 0.0-100.0 - ng/mL * This lab was reviewed by Asad Hayes on 05/04/2024 at 18:59 PM EST Clinical Notes: Fair control on prior labs as reviewed. Recommend increase vitamin D supplementation for goal level of 50+??8.?Encounter for screening for malignant neoplasm of colon? Clinical Notes: Up-to-date on colon cancer screening??9.?Encounter for screening for malignant neoplasm of prostate? Clinical Notes: Can check PSA has prostate cancer screening realizing the limitation of this test as a screening test??10.?Encounter for screening for cardiovascular disorders? Clinical Notes: Blood pressure is stable. Can check for comorbidity of hyperlipidemia and hyperglycemia to further assess risk.??11.?Encounter for immunization? Clinical Notes: Vaccines updated??12.?Encounter for antibody response examination? Clinical Notes: Titers have been checked in the past and there is immunity to rubeola??13.?Encounter for screening for other viral diseases?LAB: HCV Antibody-[id number] (Collection Date & Time - 05/03/2024 04:23 PM)* ? Value Reference Range ?Hep C Virus Ab Non Reactive Non Reac tive - * This lab was reviewed by Asad Hayes on 05/04/2024 at 18:59 PM EST Clinical Notes: Can screen for hepatitis C as per general recommendation?? 14.?Viral wart, unspecified? Referral To:Ivan Brannon??Dermatology ?Reason:faxed 15.?Others? Stop Aspirin Capsule, 81 MG, 1 capsule, Orally, Once a day.?? Clinical Notes: This note was created with voice dictation recognition software and may contain errors of grammar and syntax. Also labs were reviewed with patient.?? * Immunizations:? *Tdap : 0.5 mL (Route: Intramuscular) given by [facility] on Left Deltoid (Encounter for immunization) * Procedure Codes:?94291 TDAP VACCINE >7 [id number] IMMUNIZATION ADMIN * Preventive Medicine:? ??YOUR PREVENTIVE WELLNESS PLAN:?Prevnar?The Recommended Frequency is:?1 dose age 65+ ?Abdominal Aortic Aneurysm:?The Recommended Frequency is:?Once, between the age range of 65-75 and for those who have smoked 100+ cigarettes in lifetime ?Colorectal Cancer Screening:?The Recommended Frequency is:?Every 10 years, Colonoscopy, Every 3 years, Cologuard ?Pneumococcal (Pneumonia) Vaccine:?The Recommended Frequency is:?1 dose age 65+ ?Influenza (Flu) Vaccine:?The Recommended Frequency is:?Annually ??Immunizations:?TdaP?Last Tdap was administered?12/06/2014 ?Tetanus?Last Tetanus was administered?11/06/2004 ?Influenza?Last Influenza was administered?01/24/2023 ?COVID?Electric [employer]?Moderna ?First Dose?04/19/2020 ?Second Dose?05/17/2020 ??Screenings:?Colon cancer screening?Provider recommendation:?10 years ?Date of most recent screening:?10/26/2015 * Follow Up:?1 Year (Reason: A nnual) Care Plan: * Problems:? * Images: Billing Information: * Visit Code:? G0442 Annual Alcohol Misuse Screening, 15 min. Modifiers: 25 G0444 Annual Depression Screening, 15 min. Modifiers: G0446 Cardiovascular Screening. Modifiers: 59690 Preventive Care Est Pt. Age 40-64. * Procedure Codes:? 85768 TDAP VACCINE >7 IM. 65079 IMMUNIZATION ADMIN. * Sign off status: Completed true * Provider:?Luigi Hayes MD Date:?05/03 Generated for Edwar james/David/eTransmitting on:?06/07/2024 03:01 PM EST History and Physical Notes * HPI (History of Present Illness) Category Sub-Category Detail Notes Category Not es Depression Screening PHQ-2 (2015 Edition) Little interest or pleasure in doing things?: Not at all Feeling down, depressed, or hopeless?: N ot at all Total Score: 0 Examination Category Sub-Category Detail Notes Category Not es General Examination GENERAL APPEARANCE: Age appr opriate, in no acute distress, well developed, well nourished HEAD: atraumatic, normocep halic EYES: sclera anicteric, ex traocular movement full and smooth HEART: regular rate and rhy thm, S1, S2 normal LUNGS: clear to auscultatio n bilaterally NEUROLOGIC: alert and oriented, gait normal EXTREMITIES: no clubbing, cyanosi s, or edema PSYCH: good eye contact, sp eech clear Consultation Request Notes Referral Date Referring Provider Referred Provider Not es 05/03/2024 Luigi Hayes David faxed
--- OUTSIDE RECORDS SUMMARY | 2024-06-07 15:01 | XMS_ITS | Clinical Summary ---
Author Organization [facility] it Address [address] [place] [address] Care Team Providers Care Head Cashier Name Role Phone Unavailable Primary Care Provider Unavailabl e Social History Tobacco Use Types Packs/Day Years Used Date Smoking Tobacco: Never Assessed Sex and Gender Information Value Date Recorded Sex Assigned at Not on file Legal Sex Male 9:05 AM EST Gender Identity Not on file Sexual Orientation Not on file Plan of Treatment Health Maintenance Due Date Last Done Comments DTaP,Tdap,and Td Vaccines (1 - Tdap) 02/27/1983 Pneumococcal Vaccine: 50+ Ye ars (1 of 1 - PCV) 02/27/2014 Zoster Vaccines (1 of 2) 02/27/2014 Cholesterol Screening (Lipid Panel) 03/10/2022 Colorectal Cancer Screening: Colonoscopy 03/10/2022 Depression Screening 03/10/2022 HIV Screening 03/10/2022 Hepatitis C Screening 03/10/2022 Social Influencers of Health Screening 03/10/2022 COVID-19 Vaccine (1 - 2023-2 5 season) 2023 Influenza Vaccine (#1) 2023 RSV Immunization Patients 60 + Years Old (1 - 1-dose 75+ series) 02/27/2039 HIB Vaccines Aged Out No longer eligi ble based on patient's age to complete this topic HPV Vaccines Aged Out No longer eligi ble based on patient's age to complete this topic Hepatitis A Vaccines Aged Out No long er eligible based on patient's age to complete this topic Hepatitis B Vaccines Aged Out No long er eligible based on patient's age to complete this topic IPV Vaccines Aged Out No longer eligi ble based on patient's age to complete this topic MMR Vaccines Aged Out No longer eligi ble based on patient's age to complete this topic Meningococcal ACWY Vaccine Aged Out N o longer eligible based on patient's age to complete this topic Meningococcal B Vacine Aged Out No lo nger eligible based on patient's age to complete this topic Pneumococcal Vaccine: Pediat rics (0 to 5 Years) and At-Risk Patients (6 to 64 Years) Aged Out No longer eligible b ased on patient's age to complete this topic RSV Immunization Patients Un kevin 20 months Aged Out No longer eligible b ased on patient's age to complete this topic Varicella Vaccines Aged Out No longer eligible based on patient's age to complete this topic
--- OUTSIDE RECORDS SUMMARY | 2024-06-07 15:02 | XMS_ITS ---
Author Organization Luigi Hayes MD Address [address] [phone] Care Team Providers Care Clinical Quality Assurance Associate Name Role Phone Luigi Hayes Primary Care Provider REASON FOR VISIT Annual Encounters Encounter Location Date Provider Diagnosis Luigi Hayes MD [address] [place] [address] [place] [phone] 02/16/2024 Luigi Hayes Plan Of Treatment Next Appt Details Provider Name:Luigi Hayes , 11/01/2024 03:00:00 PM, [address] [place] [address], [phone], Provider Name:Luigi Hayes , 05/16/2025 03:30:00 PM, [address] [place] [address], [phone], Progress Notes * Juancarlos ALSTONDOB:1965 (59 yo M)Acc No.[id number]:02/16/2024 Progress Notes Patient:?Juancarlos ALSTON Provider:?Luigi Hayes MD :1965???Age:58 Y???Sex:Male Ian e:02/16/2024 Address:[address] [facility] [id number] Subjective: * Chief Complaints: * ???1. Annual. * Medical History:? * Ocular Surgical History:? Objective: * Vitals:? Past Vitals:* 06/13/2023 Temp:97.6F, HR:70/min, Wt:16 9.90lbs, BMI:23.04Index, Ht:6 ft, Oxygen sat %:98% * 02/25/2023 Temp:97.2F, HR:77/min, BP:11 0/68mm Hg, Wt:170lbs, BMI:23.05Index, Ht:6 ft, Oxygen sat %:99% * 01/24/2023 Temp:94.9F, HR:77/min, BP: 1 04/90 mm Hg,Sitting Right Arm:116/70mm Hg, Wt:171.6lbs, BMI:23.27Index, Ht:6 ft, Oxygen sat %:99% Assessment: Plan: * Treatment: Care Plan: * Problems:? * Images: Billing Information: * Visit Code:? * Procedure Codes:? * Electronic signature of Ute Hayes MD on 06/07/2024 at 03:01 PM EST Sign off status: Pending * Provider:?Luigi Hayes MD Date:?02/15 Generated for Edwar james/David/Alis on:?06/07/2024 03:01 PM EST
--- OUTSIDE RECORDS SUMMARY | 2024-06-07 15:02 | XMS_ITS ---
Author Organization Luigi Hayes MD Address [address] [place] [phone] Care Team Providers Care Strategic Advisor Name Role Phone Luigi Hayes Primary Care Provider REASON FOR VISIT flu shot Medications Medication SIG (Take, Route, Frequency, Duration) Notes Start Date End Date Status Fish Oil Not-Taking Azelastine-Fluticasone 137-50 MCG/ACT 1 spray in each nostril Nasally Twice a day for 30 days 02/25/2023 Not-Taking Rosuvastatin Calcium 10 MG TAKE 1 TABLET BY MOUTH EVERY DAY for 90 Active Lidocaine 5 % 1 application as nee ded Externally Three times a day 06/13/2023 Active Vitamin D3 2000 UNIT 1 capsule Orally On ce a day Not-Taking Vitamin B 12 500 MCG 1 tablet Orally Onc e a day for 30 day(s) Active Aspirin 81 MG 1 capsule Orally Onc e a day for 30 day(s) Active Immunizations Vaccine Route Administration Date Status Comme nts *Influenza-Fluzone IM Intramuscular 01/07/2024 Administere d Encounters Encounter Location Date Provider Diagnosis Luigi Hayes MD [address] [phone] 01/07/2024 Luigi Hayes Encounter for immunization Z23 Assessments Encounter Date Diagnosis (ICD Code) Assessment Notes Treatment Notes Treatment Clinical Notes Section Notes 01/07/2024 Encounter for immunization (ICD-10 - Z23) Plan Of Treatment Next Appt Details Provider Name:Luigi Hayes , 11/01/2024 03:00:00 PM, [address] [place] [address], [place] [address], [place], [phone], Provider Name:Luigi Hayes 05/16/2025 03:30:00 PM, [address] [facility], [address] [facility], [place], [place], [phone], Progress Notes * Juancarlos ALSTONDOB:1965 (58 yo M)Acc No.[id number]:01/07/2024 Progress Note Patient:Juancarlos GOLDEN Provider:?Luigi Hayes MD :1965???Age:58 Y???Sex:Male Ian e:01/07/2024 Address:[address] [place], [place] [phone] Subjective: * Chief Complaints: * ???Flu shot * Medical History:? * Surgical History:? * Hospitalization/Major Diagno stic Procedure:? * Medications:?TakingAspirin 8 1 MG Capsule 1 [...] List reviewed and reconciled with the patient Objective: * Vitals:? Past Vitals:* 06/13/2023 Temp:97.6F, HR:70/min, Wt:16 9.90lbs, BMI:23.04Index, Ht:6 ft, Oxygen sat %:98% * 02/25/2023 Temp:97.2F, HR:77/min, BP:11 0/68mm Hg, Wt:170lbs, BMI:23.05Index, Ht:6 ft, Oxygen sat %:99% * 01/24/2023 Temp:94.9F, HR:77/min, BP: 1 04/90 mm Hg,Sitting Right Arm:116/70mm Hg, Wt:171.6lbs, BMI:23.27Index, Ht:6 ft, Oxygen sat %:99% Assessment: * Assessment: 1.?Encounter for immunizatio n - Z23 (Primary)??? Plan: * Treatment: * Immunizations:? *Influenza-Fluzone : 0.5 mL (Route: Intramuscular) given by [facility] on Left Deltoid (Encounter for immunization) * Procedure Codes:?20775 Influ zander, seasonal, injectable, preservative free, 4 yrs and [id number] IMMUNIZATION ADMIN * Billing Information: * Visit Code:? * Procedure Codes:? 84218 Influenza, seasonal, injectable, preservative free, 4 yrs and above. 26227 IMMUNIZATION ADMIN. * Sign off status: Completed true * Provider:?Luigi Hayes MD Date:?01/06 Generated for Edwar james/David/Alis on:?06/07/2024 03:02 PM EST
== END 2024-06-07 12:50 | disposition home or self-care (01) ==
LOC: HO.LAB 12:49
PROVIDERS: PCP Internal Medicine; Visit Provider Urology
DX: R97.20 Elevated prostate specific antigen [PSA] (principal); Z12.5 Encounter for screening for malignant neoplasm of prostate
CPT/HCPCS: 36415; 84153

== ENCOUNTER 2024-06-29 15:17 | Outpatient (AMB) | payer OTHER, SELFPAY ==
--- NOTE | 2024-06-29 15:31 | MHC.OFFVIS ---
Intake Visit Reasons: 6M PVR/PSA Intake Note: Patient is Present for a 6 month follow up PVR/PSA Urology Med: Tamsulosin, Finasteride Antibiotic Allergy: None Blood Thinner: None PVR:103ml Allergies No Known Allergies Allergy (Verified 06/29/24 15:31) HPI Comments Details: Juancarlos GOULD is a very pleasant male. They are a patient of Dr Hayes. They are seen in the office today for the following urologic conditions. - lower urinary tract symptoms - nephrolithiasis PVR 100 12 month follow-up PVR and PSA Nephrolithiasis Stable Imaging - 02/25 CT bilateral 3 mm stone, 1.5 cm left renal cyst - 08/27 renal ultrasound normal Lower Urinary Tract Symptoms: Current for the further evaluation of lower urinary tract symptoms 01/28 cystoscopy with open TURP defect Current treatment includes none - prostate intervention 02/25 Green[facility] laser - pathology BPH with chronic inflammation Prostate Symptom Score 04/25 , Mild (0-8), Bother 3 06/23 , Mild (0-8), Bother 2. Results from testing include Cystoscopy high riding bladder neck (median bar) 06/23 renal/bladder us Yes date 03/18/2018 bladder wall thickening PSA - 09/23 5.4, 02/26 4.3, 04/30 3.0 Prior Prostate Score unknown. Prostate volume 30-50gm. Testing at next visit will include bladder scan. [facility] - [facility] Medical History Scoliosis Feeling of incomplete bladder emptying Benign prostatic hyperplasia with lower urinary tract symptoms Bladder wall thickening Surgical History Hx of colonoscopy Social History Patient Tobacco Use Status: Never used Tobacco Review of Systems Const Denies chills and Denies fever(s) Card Reports no additional complaints and Denies syncope Resp Denies cough GI Denies abdominal pain and Denies heartburn Reports as per HPI and Denies change in libido Neuro Denies syncope Psych Denies change in libido Endo Denies change in libido Physical Exam Const General: cooperative, healthy appearing, comfortable and no acute distress Orientation/consciousness: patient oriented x3 HEENT Face and sinus: Yes normal facial exam Mouth: moist mucous membranes Neck Neck: Yes normal visual inspection, Yes full ROM and Yes trachea midline Chest Chest palpation & inspection: normal inspection of the chest Resp Effort & Inspection: normal respiratory effort, able to speak in complete sentences and no respiratory distress GI Inspection: Yes normal to inspection Back/Spine/Pelvis Cervical Spine: normal cervical lordosis Thoracic/Lumbar Spine: thoracic and lumbar spine normal to inspection Skin General skin exam: no rashes or lesions noted Neuro General: patient oriented x3, gait normal, tone normal and moves all extremities Extrem General: Yes normal to inspection and Yes capillary refill normal Assessment & Plan Assessment & Plan (1) Elevated PSA: Code(s): R97.20 - Elevated prostate specific antigen [PSA] Category: Medical (2) Benign prostatic hyperplasia with lower urinary tract symptoms: Code(s): N40.1 - Benign prostatic hyperplasia with lower urinary tract symptoms Category: Medical Plan Twelve month follow-up PSA Orders: Orders Prostate Specific Antigen 364 Days N40.1 - Benign prostatic hyperplasia with lower urinary tract symptoms Medications: Discontinued finasteride Discontinued Reason: Patient Completed Course 5 mg PO DAILY 90 days 90 tabs 1RF C61 - Malignant neoplasm of prostate, N40.1 - Benign prostatic hyperplasia with lower urinary tract symptoms tamsulosin Discontinued Reason: Patient Completed Course 0.4 mg PO BEDTIME 90 days 90 caps 1RF Patient Instructions: This note is constructed using voice recognition software. While every effort has been made to ensure accuracy simulation educator errors may have been included. Imaging studies, laboratory and physical exam results were discussed and reviewed in detail. No major barriers to patient understanding were identified. An opportunity to ask questions regarding the treatment plan was provided. All questions were answered. The patient expressed understanding and agreement with the above treatment plan. The patient is aware they should contact our office by phone for worsening of their current condition or the appearance of new urologic symptoms. Compliance is encouraged with any medications and followup testing that is ordered. It is a privilege to participate in the urologic care of your patient. If you have any questions or concerns regarding treatment for the above conditions, or other urologic issues, please do not hesitate to contact me. The office telephone contact is [phone]. Sincerely, Dr Mateus Grimm MD, [facility] - Urology Compassionate Specialist Care for the Genitourinary System Coding Level of Care Code Est Pt Level 3 (65351) Diagnoses Elevated PSA R97.20 Benign prostatic hyperplasia with lower urinary tract symptoms N40.1
--- OUTSIDE RECORDS SUMMARY | 2024-06-29 19:08 | XMS_ITS ---
Author Organization Luigi Hayes MD Address [address] [phone] Care Team Providers Care Skin Toggler Name Role Phone Luigi Hayes Primary Care Provider Allergies No Known Allergies Results Component Value Reference Range Notes Hemoglobin [id number] Reviewed date:05/04/2024 06:59:10 PM Interpretation: Performing Lab:[facility], [address] [place] [address], Phone - [phone], Director - MDJodry Notes/Report: Hemoglobin A1c 6.0 4.8-5.6 % . Prediabetes: 5.7 - 6.4 Diabetes: >6.4 Glycemic control for adults with diabetes: <7.0 Urinalysis, Complete-[id number] Reviewed date:05/04/2024 06:59:10 PM Interpretation: Performing Lab:[facility], [address] [place] [address], Phone - [phone], Director - MDJodry Notes/Report: Specific Rapelje 1.018 1.005-1.030 pH 5.5 5.0-7.5 Urine-Color Yellow [...] None seen None seen/Few CBC With Differential/Platel et-[id number] Reviewed date:05/04/2024 06:59:10 PM Interpretation: Performing Lab:[facility] [place], [address] [facility], [place], Phone - [phone], Director - Hyacinth Notes/Report: WBC 9.1 3.4-10.8 [...] Grans (Abs) 0.0 0.0-0.1 x10E3/uL Vitamin D, 73-Geiiypw-[id number] Reviewed date:05/04/2024 06:59:10 PM Interpretation: Performing Lab:[facility] [place], [address] [place] [address], [place], Phone - [phone], Director - Hyacinth Notes/Report: Vitamin D, 25-Hydroxy 21.1 30.0-100.0 ng/mL Vitamin D deficiency has been defined by the [place] [employer] and an Endocrine Society practice guideline as a level of serum 25-OH vitamin D less than 20 ng/mL (1,2). The Endocrine Society went on to further define vitamin D insufficiency as a level between 21 and 29 ng/mL (2). 1. IOM ([place] [employer]). 2010. Dietary reference intakes for calcium and D. [facility]: The National Academies Press. 2. Naty MF, Jerod NC, Hi LARA, et al. Evaluation, treatment, and prevention of vitamin D deficiency: an Endocrine Society clinical practice guideline. JCEM. 2010; 96(7):1911-30. Comp. Metabolic Panel (14)-3 12766 Reviewed date:05/04/2024 06:59:10 PM Interpretation: Performing Lab:[facility]mullen, [address] [facility], Phone - [phone], Director - MDJodry Notes/Report: Glucose 90 70-99 [...] IU/L ALT (SGPT) 44 0-44 IU/L LP+Non-HDL Cholesterol-81912 5 Reviewed date:05/04/2024 06:59:11 PM Interpretation: Performing Lab:[facility]mullen, [address] [facility], Phone - [phone], Director - MDJodry Notes/Report: Cholesterol, Total 127 100-199 mg/dL Triglycerides 202 0-149 mg/dL HDL Cholesterol 33 >39 mg/dL VLDL Cholesterol Faisal 33 5-40 mg/dL LDL Chol Calc ([facility]) 61 0-99 mg/dL Non-HDL Cholesterol 94 0-129 mg/dL HCV Antibody-[id number] Reviewed date:05/04/2024 06:59:11 PM Interpretation: Performing Lab:Jason Mcmullen, [address] [facility], [place], Phone - [phone], Director - MDJodry Notes/Report: Hep C Virus [...] Brannon Referred Provider Specialty Dermatology General Notes [facility] Evelyn 04/08 01:09:41 PM >Completed referral form and [facility] 03:15:52 PM >Received fax patient booked [...] Date Provider Diagnosis Luigi Hayes MD [address] [facility] [address] [place], [place] [phone] 05/03/2024 Luigi Hayes Encounter for genera l [...] Provider Name:Luigi Hayes , 11/01/2024 03:00:00 PM, [address] [place] [address], [phone], Provider Name:Luigi Hayes , 05/16/2025 03:30:00 PM, [address] [place] [address], [phone], Progress Notes * Juancarlos ALSTONDOB:1965 (59 yo M)Acc No.[id number]:05/03/2024 Progress Notes Patient:Juancarlos GOLDEN Provider:?Luigi Hayes MD :1965???Age:59 Y???Sex:Male Ian e:05/03/2024 Address:[facility] [id number] Subjective: * Chief Complaints: * ???Annual Wellness [...] drink alcohol?: No. ???Miscellaneous:?Exercise: yes, walking. 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 ???Household:?Household?Marital status:?Drug/Alcohol:?AUDIT-C (Standard)?Did you have a drink [...] & Time - 09/04/2022 10:49 AM)?ValueReference Range?VITAMIN [id number]) - pg/mL * Lab:LIPID PANEL W REFLEX [...] 4.9?H (Ref Range: (0-4) NG/ML) ???Lab:PSA Total+% Free-[id number] (Order Date - 06/27/2023) (Collection Date & [...] * Treatment: ? Value Reference Range ?Specific Rapelje 1.018 1.005- 1.030 - * ?pH 5.5 [...] at 18:59 PM EST ?LAB: CBC With Differential/Platelet-[id number] (Collection Date & Time - 05/03/2024 04:23 [...] 18:59 PM EST ?LAB: Comp. Metabolic Panel ([id number] (Collection Date & Time - 05/03/2024 04:23 [...] 05/04/2024 at 18:59 PM EST ?LAB: LP+Non-HDL Cholesterol-[id number] (Collection Date & Time - 05/03/2024 04:23 PM)* ? Value Reference Range ?Cholesterol, Total 127 100- 199 - mg/dL * ?Triglycerides 202 H 0-149 - m g/dL * ?HDL Cholesterol 33 L >39 - m g/dL * ?VLDL Cholesterol Faisal 33 5- 40 - mg/dL * ?LDL Chol Calc ([facility]) 61 0-9 9 - mg/dL * ?Non-HDL Cholesterol 94 0-1 29 - mg/dL * This lab was reviewed by Asad Hayes on 05/04/2024 at 18:59 PM EST Clinical Notes: General healthcare up-to-date. Check routine labs?? 2.?Prediabetes?LAB: Hemoglobin [id number] (Collection Date & Time - 05/03/2024 04:23 [...] prostate?? 7.?Vitamin D deficiency, unspecified?LAB: Vitamin D, 02-Bvlbxzg-[id number] (Collection Date & Time - 05/03/2024 04:23 [...] for screening for other viral diseases?LAB: HCV Antibody-098100 (Collection Date & Time - 05/03/2024 04:23 [...] 0.5 mL (Route: Intramuscular) given by Negrita [facility] on Left Deltoid (Encounter for immunization) * Procedure Codes:?83511 TDAP VACCINE >7 [id number] IMMUNIZATION ADMIN * Preventive Medicine:? ??YOUR PREVENTIVE [...] Tetanus was administered?11/06/2004 ?Influenza?Last Influenza was administered?01/24/2023 ?COVID?Refrigeration Mechanic?Moderna ?First Dose?04/19/2020 ?Second Dose?05/17/2020 ??Screenings:?Colon cancer screening?Provider recommendation:?10 years ?Date of most recent screening:?10/26/2015 * Follow Up:?1 Year (Reason: A nnual) Care Plan: * Problems:? * Images: Billing Information: * Visit Code:? G0442 Annual Alcohol Misuse Screening, 15 min. Modifiers: 25 G0444 Annual Depression Screening, 15 min. Modifiers: G0446 Cardiovascular Screening. Modifiers: 32014 Preventive Care Est Pt. Age 40-64. * Procedure Codes:? 26388 TDAP VACCINE >7 IM. 83446 IMMUNIZATION ADMIN. * Sign off status: Completed true * Provider:?Luigi Hayes MD Date:?05/03 Generated for Edwar james/David/eTransmitting on:?06/29/2024 07:08 PM EDT History and Physical Notes * HPI (History [...]
--- OUTSIDE RECORDS SUMMARY | 2024-06-29 19:09 | XMS_ITS ---
Author Organization Luigi Hayes MD Address [address] [phone] Care Team Providers Care Mechanic Foreman Name Role Phone Luigi Hayes Primary Care Provider Allergies No Known Allergies REASON FOR VISIT [facility] 06/27 Medications Medication SIG (Take, Route, Frequency, Duration) Notes Start Date End Date Status Rosuvastatin Calcium 10 MG TAKE 1 TABLET BY MOUTH EVERY DAY for 90 Active Vitamin D3 2000 UNIT 1 capsule Orally On ce a day Not-Taking Vitamin B 12 500 MCG 1 tablet Orally Onc e a day for 30 day(s) Not-Taking Lidocaine 5 % 1 application as nee ded Externally Three times a day 06/13/2023 Not-Taking Imiquimod 5 % External for 30 Days Active Azelastine-Fluticasone 137-50 MCG/ACT 1 spray in each nostril Nasally Twice a day for 30 days 02/25/2023 Not-Taking Fish Oil Not-Taking Social History Tobacco Use: Social History Observation Description Date Details (start date - stop date) Never Smoker NA - NA AUDIT-C (Standard) Question Answer Notes Did you have a drink containing alcohol in the p ast year? No Points 0 Interpretation Negative Tobacco Control (Standard) Question Answer Notes Tobacco use: Nonsmoker Vital Signs Temperature 96.5 degrees Fahrenheit 06/30/19 25 Blood pressure systolic 116 mm Hg 06/30/19 25 Blood pressure diastolic 70 mm Hg 025 Heart Rate 78 /min 06/29/2024 Height 6 ft in 06/29/2024 Weight 177 lbs 06/29/2024 BMI 24.0 kg/m2 06/29/2024 Oximetry 97 % 06/29/2024 Encounters Encounter Location Date Provider Diagnosis Luigi Hayes MD [address] [place] [phone] 06/29/2024 Luigi Freddy Aural vertigo, right ear H81.311 Assessments Encounter Date Diagnosis (ICD Code) Assessment Notes Treatment Notes Treatment Clinical Notes Section Notes 06/29/2024 Aural vertigo, right ear (ICD-10 - H81.311) He was at buddhist and developed sudden onset of vertigo. There were some fatigue prior to that. He does not recall any recent viral infection but maybe 3 weeks ago he had a slight sore throat and ear pain. He has some discomfort in his eyes but ER evaluation for influenza was unremarkable. In the ER he had a CAT scan that did not show any stroke. In retrospect he was severely vertiginous and felt that he could not control himself. Other people witnessing him says he was having uncontrollable movements but there was no postictal state and there was no nausea and vomiting and there was no loss of bowel or bladder function. Therefore this is probably vertigo rather than a seizure. At this point he does not recall if there was any hearing loss at that time but this appears to be an auricular vertigo. This may occur spontaneously unexpectedly. If this is inflammatory or viral in etiology it may take 6 months to resolve. He can use meclizine [id number] to help control symptoms. Can consider MRI of the acoustic nerve to exclude subacute stroke or inflammatory changes. 06/29/2024 Other This note was created with voice dictation recognition software and may contain errors of grammar and syntax. Also labs were reviewed with patient. Plan Of Treatment Pending Test Test Name Order Date MRA Brain/Head 06/29/2024 Next Appt Details Provider Name:Luigi Hayes , 11/01/2024 03:00:00 PM, [address] [place] [address], [address], [phone], Provider Name:Luigi Hayes , 05/16/2025 03:30:00 PM, [address] [place] [address], [address], [phone], Progress Notes * Kenyon ALSTON:1965 (59 yo M)Acc No.[id number]:06/29/2024 Progress Note Patient:?Juancarlos ALSTON Provider:?Luigi Hayes MD :1965???Age:59 Y???Sex:Male Ian e:06/29/2024 Address:[facility] [address] [id number] Subjective: * Chief Complaints: * ???[facility] 06/27 * Medical History:? * Social History:?Tobacco Use:?Tobacco Control (Standard)?Tobacco use:?Nonsmoker ???Drugs/Alcohol:?Drugs?Have you used drugs other than those for medical reasons in the past 12 months??No ?Caffeine?Intake:?2-3 cups per day ?Do you smoke marijuana?: Denies. ?Do you drink alcohol?: No. ???Miscellaneous:?Exercise: yes, walking. 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 ???Household:?Household?Marital status:?Drug/Alcohol:?AUDIT-C (Standard)?Did you have a drink containing alcohol in the past year??No ?Points?0 ?Interpretation?Negative * Medications:?TakingRosuvasta tin Calcium 10 MG Tablet TAKE 1 TABLET BY MOUTH EVERY DAY Imiquimod 5 % Cream External Taking Rosuvastatin Calcium 10 MG Tablet TAKE 1 TABLET BY MOUTH EVERY DAY Taking Imiquimod 5 % Cream External Not-Taking/PRNAzelastine-Fluticasone 137-50 MCG/ACT Suspension 1 spray in each nostril Nasally Twice a day Fish Oil Vitamin D3 2000 UNIT Capsule 1 capsule Orally Once a day Vitamin B 12 500 MCG Tablet 1 tablet Orally Once a day Lidocaine 5 % Ointment 1 application as needed Externally Three times a day Medication List reviewed and reconciled with the patientNot-Taking/PRN Azelastine-Fluticasone 137-50 MCG/ACT Suspension 1 spray in each nostril Nasally Twice a day Not-Taking/PRN Fish Oil Not-Taking/PRN Vitamin D3 2000 UNIT Capsule 1 capsule Orally Once a day Not-Taking/PRN Vitamin B 12 500 MCG Tablet 1 tablet Orally Once a day Not- Taking/PRN Lidocaine 5 % Ointment 1 application as needed Externally Three times a day Medication List reviewed and reconciled with the patient * Allergies:?N.K.D.A.no[Allerg ies Verified] Objective: * Vitals:?Temp:96.5F, HR:78/mi n, BP:Sitting Right Arm: 116/70mm Hg, Wt:177lbs, BMI:24Index, Ht:6 ft, Oxygen sat %:97%. Past Vitals:* 05/03/2024 Temp:97.1F, HR:80/min, BP:Si tting Right Arm: 110/64mm Hg, Wt:173lbs, BMI:23.46Index, Ht:6 ft, Oxygen sat %:98% * 06/13/2023 Temp:97.6F, HR:70/min, Wt:16 9.90lbs, BMI:23.04Index, Ht:6 ft, Oxygen sat %:98% * 02/25/2023 Temp:97.2F, HR:77/min, BP:11 0/68mm Hg, Wt:170lbs, BMI:23.05Index, Ht:6 ft, Oxygen sat %:99% * Examination: ???General Examination: ?GENERAL APPEARANCE:?Age appropriate, in no acute distress, well developed, well nourished.?HEAD:? atraumatic, normocephalic.?EYES:? sclera anicteric, extraocular movement full and smooth.?HEART:?regular rate and rhythm, S1, S2 normal.?LUNGS:?clear to auscultation bilaterally.?EXTREMITIES:?no clubbing, cyanosis, or edema.?NEUROLOGIC:?alert and oriented, gait normal.?PSYCH:? good eye contact, speech clear.?Vestibular Exam: ?HALLPIKE:?negative.?ROMBERG:?without undue sway .?Unterberger?Rotates to Right.? Assessment: * Assessment: 1.?Aural vertigo, right ear - H81.311 (Primary)??? Plan: * Treatment: 2.?Others? Clinical Notes: This note was created with voice dictation recognition software and may contain errors of grammar and syntax. Also labs were reviewed with patient.?? * Procedure Codes:? * Images: Billing Information: * Visit Code:? 18914 Office Visit, Est Pt., Level 3. * Procedure Codes:? * Sign off status: Completed true * Provider:?Luigi Hayes MD Date:?06/29 Generated for Aundreai erika/David/eTransmitting on:?06/29/2024 07:08 PM EDT History and Physical Notes * Examination Category Sub-Category Detail Notes Category Not es Vestibular Exam HALLPIKE: negative ROMBERG: without undue sway Unterberger Rotates to Right General Examination GENERAL APPEARANCE: Age appr opriate, [...]
--- OUTSIDE RECORDS SUMMARY | 2024-06-29 19:09 | XMS_ITS | Patient Health Record ---
Author Organization Luigi Hayes MD Address [address] [id number] Care Team Providers Care Foley Artist Name Role Phone Luigi Hayes Primary Care Provider Allergies No Known Allergies Results Component Value Reference Range Notes Hemoglobin [id number] Reviewed date:05/04/2024 06:59:10 PM Interpretation: Performing Lab:[facility] [place], [address] [facility], Phone - [phone], Director - MDJfy Notes/Report: Hemoglobin A1c 6.0 4.8-5.6 % . Prediabetes: 5.7 - 6.4 Diabetes: >6.4 Glycemic control for adults with diabetes: <7.0 Urinalysis, Complete-[id number] Reviewed date:05/04/2024 06:59:10 PM Interpretation: Performing Lab:[facility] [place], [address] [facility], Phone - [phone], Director - MDJfy Notes/Report: Specific [place] 1.018 1.005-1.030 pH 5.5 5.0-7.5 Urine-Color Yellow [...] None seen None seen/Few CBC With Differential/Platel et-[id number] Reviewed date:05/04/2024 06:59:10 PM Interpretation: Performing Lab:[facility], [address] [facility] [place], Phone - [phone], Director - Hyacinth Notes/Report: WBC 9.1 3.4-10.8 [...] Grans (Abs) 0.0 0.0-0.1 x10E3/uL Vitamin D, 18-[id number] Reviewed date:05/04/2024 06:59:10 PM Interpretation: Performing Lab:Jason Cuiitan, [address] [facility] [place], Phone - [phone], Director - Hyacinth Notes/Report: Vitamin D, 25-Hydroxy 21.1 30.0-100.0 ng/mL Vitamin D deficiency has been defined by the [place] of [employer] and an Endocrine Society practice guideline as a level of serum 25-OH vitamin D less than 20 ng/mL (1,2). The Endocrine Society went on to further define vitamin D insufficiency as a level between 21 and 29 ng/mL (2). 1. IOM ([place] of [employer]). 2010. Dietary reference intakes for calcium and D. [place]: The National Academies Press. 2. Naty MF, Jerod NC, Hi LARA, et al. Evaluation, treatment, and prevention of vitamin D deficiency: an Endocrine Society clinical practice guideline. JCEM. 2010; 96(7):1911-30. Comp. Metabolic Panel (14)-3 11443 Reviewed date:05/04/2024 06:59:10 PM Interpretation: Performing Lab:[facility], [address] [facility], Phone - [phone], Director - MDJfy Notes/Report: Glucose 90 70-99 mg/dL BUN 18 [...] IU/L ALT (SGPT) 44 0-44 IU/L LP+Non-HDL Cholesterol-72465 5 Reviewed date:05/04/2024 06:59:11 PM Interpretation: Performing Lab:[facility], [address] [facility] [place], Phone - [phone], Director - Preety Notes/Report: Cholesterol, Total 127 100-199 mg/dL Triglycerides 202 0-149 mg/dL HDL Cholesterol 33 >39 mg/dL VLDL Cholesterol Faisal 33 5-40 mg/dL LDL Chol Calc ([facility]) 61 0-99 mg/dL Non-HDL Cholesterol 94 0-129 mg/dL HCV Antibody-[id number] Reviewed date:05/04/2024 06:59:11 PM Interpretation: Performing Lab:[facility], [address] [facility] [place], Phone - [phone], Director - Preety Notes/Report: Hep C Virus Ab Non Reactive [...] Brannon Referred Provider Specialty Dermatology General Notes [facility] Evelyn 04/08 01:09:41 PM >[facility] referral [facility] 03:15:52 PM >Received fax patient booked 06/14/24 at 10am with [facility] Odell. Called the patient, he was aware but needed to reschedule. Gave him the phone number to reschedule with facility Referral Priority Routine Referral Appointment Date 06/14/2024 Medications Medication SIG (Take, Route, Frequency, Duration) Notes Start Date End Date Status Rosuvastatin Calcium 10 MG TAKE 1 TABLET BY MOUTH EVERY DAY for 90 Active Azelastine-Fluticasone 137-50 MCG/ACT 1 spray in each nostril Nasally Twice a day for 30 days 02/25/2023 Not-Taking Fish Oil Not-Taking Vitamin D3 2000 UNIT 1 capsule Orally On ce a day Not-Taking Vitamin B 12 500 MCG 1 tablet Orally Onc e a day for 30 day(s) Not-Taking Lidocaine 5 % 1 application as nee ded Externally Three times a day 06/13/2023 Not-Taking Imiquimod 5 % External for 30 Days Active Immunizations Vaccine Route Administration Date Status Comme nts Td (adult) preservative free Unknown 11/06/2004 Administered Influenza, seasonal, injectable, preservative free, 4 yrs and above IM Intramuscular 02/15/2016 Administered Influenza IM Intramuscular 02/07/2020 Administered MHABB-72-Snooeur Vaccine Unknown 04/19/2020 Administere d KFGUT-21-Ihfrkns Vaccine Unknown 05/17/2020 Administere d UCFRQ-82-Pccdzcu Vaccine Unknown 04/19/2021 Administere d COVID-19 Pfizer BiValent Booster Unknown 01/11/2022 Administered *Tdap Unknown 12/06/2014 Administered *Tdap IM Intramuscular 05/03/2024 Administered *Influenza-Quadrivalent IM Intramuscular 01/24/2023 Admini stered *Influenza-Medicare-AS IM Intramuscular 03/19/2021 Adminis tered *Influenza-Fluzone IM Intramuscular 01/07/2024 Administere d *Fshandqdb-Xaqb-YT IM Intramuscular 02/19/2019 Administere d *Fpyilbbrh-Rvfx-HX IM Intramuscular 01/08/2022 Administere d Social History Tobacco Use: Social History Observation Description Date Details (start date - stop date) Never Smoker NA - NA AUDIT-C (Standard) Question Answer Notes Did you have a drink containing alcohol in the p ast year? 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 Problem Vitamin D deficiency (18919806) Vitamin D deficiency, unspecified (E55.9) Active confirmed Problem Mixed hyperlipidemia (283668437) Mixed hyperlipidemia (E78.2) Active confirmed Problem Migraine with aura (7592068) Migraine with aura, not intractable, without status migrainosus (G43.109) Active confirmed Problem Idiopathic scoliosis AND/OR kyphoscoliosis (82789729) Other idiopathic scoliosis, thoracic region (M41.24) Active confirmed Problem Cervical radiculopathy (64436074) Radiculopathy, cervical region (M54.12) Active confirmed Problem Calculus of ureter (51810432) Calculus of ureter (N20.1) Active confirmed Problem 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, 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) Active confirmed Problem Paresthesia (finding) (81932082) Paresthesia of skin (R20.2) Active confirmed Problem Family history of prostate cancer (091673730) Family history of malignant neoplasm of prostate (Z80.42) Active confirmed Problem Food allergy (181475442) Allergy to other foods (Z91.018) Active confirmed Problem Lower urinary tract symptoms due to benign prostatic hypertrophy (56287745666096) Benign prostatic hyperplasia with lower urinary tract symptoms (N40.1) Active confirmed Problem Prediabetes (975603967) Prediabetes (R73.03) Active confirmed Problem Cervicalgia (96882832) Cervicalgia (M54.2) Inactive confirmed Problem Impaired fasting glucose (713892917) Impaired fasting glucose (R73.01) Inactive confirmed Problem Tarsal tunnel syndrome (23509514) Tarsal tunnel syndrome, right lower limb (G57.51) Problem resolved confirmed Problem Balanitis (65824898) Balanitis (N48.1) Problem resolved confirmed Problem Cough (56005194) Cough (R05) Problem resolved confirmed Problem Elevated PSA (406707167) Elevated prostate specific antigen [PSA] (R97.20) Problem resolved confirmed Problem COVID19 DAGO-Viru s Identified (U07.1) Problem resolved confirmed Vital Signs Heart Rate 78 /min 06/29/2024 Temperature 96.5 degrees Fahrenheit 06/29/2024 Oximetry 97 % 06/29/2024 Blood pressure diastolic 70 mm Hg 06/29/2024 Height 6 ft in 06/29/2024 Blood pressure systolic 116 mm Hg 06/29/2024 Weight 177 lbs 06/29/2024 BMI 24.0 kg/m2 06/29/2024 Encounters Encounter Location Date Provider Diagnosis Luigi Hayes MD [address] [id number] 01/07/2024 Luigi Hayes Encounter for immunization Z23 Luigi Hayes MD [address] [id number] 05/03/2024 Luigi Hayes Encounter for genera l [...] diseases Z11.59 and Viral wart, unspecified B07.9 Luigi Hayes MD [address] [id number] 06/29/2024 Luigi Hayes Aural vertigo, right ear H81.311 Luigi Hayes MD [address] [id number] 07/21/2023 Luigi Hayes Assessments Encounter Date Diagnosis (ICD Code) Assessment Notes Treatment Notes Treatment Clinical Notes Section Notes 06/29/2024 Aural vertigo, right ear (ICD-10 - H81.311) He was at worship and developed sudden onset of vertigo. There [...] months to resolve. He can use meclizine [id number]-pjvujgm to help control symptoms. Can consider MRI of the acoustic nerve to exclude subacute stroke or inflammatory changes. 05/03/2024 Encounter for general adult medical examination without abnormal findings (ICD-10 - Z00.00) General healthcare up-to-date. Check routine labs 05/03/2024 Prediabetes (ICD-10 - R73.03) Stable on prior labs as reviewed. Continue exercise. He started to lift some weights to help his back and can continue same. 01/07/2024 Encounter for immunization (ICD-10 - Z23) 05/03/2024 Mixed hyperlipidemia (ICD-10 - E78.2) Stable [...] syntax. Also labs were reviewed with patient. 06/29/2024 Other This note was created with voice dictation recognition software and may contain errors of grammar and syntax. Also labs were reviewed with patient. Plan Of Treatment Pending Test Test Name Order Date COMPREHENSIVE METABOLIC PANEL 03/04/2017 TESTOSTERONE 08/28/2017 COMPREHENSIVE METABOLIC PANEL 01/08/2022 LIPID PROFILE 01/08/2022 PROSTATIC SPECIFIC ANTIGEN SCR 2 VITAMIN D, 25-HYDROXY 07/11/2021 VITAMIN D, 25-HYDROXY 07/06/2020 VITAMIN D, 25-HYDROXY 01/08/2022 COVID and INFLUENZA Rapid Assay 05/31/20 23 MRA Brain/Head 06/29/2024 Future Test Test Name Order Date FREE AND TOTAL PSA 11/05/2017 Next Appt Details Provider Name:Luigi Hayes , 11/01/2024 03:00:00 PM, [address] [place] [address], [place] [address], [place], [place], [phone], Provider Name:Luigi Hayes , 05/16/2025 03:30:00 PM, [address] [place] [address], [place] [address], [place], [place], [phone], Insurance Providers Payer Name Payer Address Payer Phone Subscriber Number Group Number Insured Name Patient Relationship to Insured Coverage Start Date Coverage End Date [facility] [address] [place] [address] [phone] [id number] Juancarlos Alston Self - patient is the insured Medical (General) History Medical History History ICD Code 2013-Common migraine without mention of intractable migraine Impaired fasting glucose Radiculopathy, cervical region Migraine with aura, not intractable, wit hout status migrainosus Family history of malignant neoplasm of prostate Vitamin D deficiency, unspecified Allergy to other foods Elevated prostate specific antigen [PSA] Cyst of kidney, acquired Other idiopathic scoliosis, thoracic reg ion COVID19 DAGO-Virus Identified (resolved 0 07/06/2020) Balanitis (resolved 10/27/2020) Cough (resolved 10/27/2020) Tarsal tunnel syndrome, right lower limb (resolved 07/19/2022) Elevated prostate specific antigen [PSA] (resolved 07/19/2022) Surgical History Surgery Date(Month/Year) wisdom teeth extraction Laser Enucleation of Prostate 03/2021 Hospitalization History Reason Date(Month/Year)
--- OUTSIDE RECORDS SUMMARY | 2024-06-29 19:09 | XMS_ITS | Encounter Summary ---
Author Organization [employer] Address [address] [place] [address] Care Team Providers [employer] Sales Consultant Name Role Phone Luigi Hayes MD Primary Care Provider [phone] Reason for Visit * Reason Comments Dizziness Per ems coming from [place] was sitting down when he started to feel dizzy as if he was going to pass out. Patient states this never happened before , bystanders on scene confirmed no loc, of fall. Encounter Details Date Type Department Care Team (Late st Contact Info) Description 06/27/2024 12:05 PM EDT - 06/27/2024 6:11 PM EDT Emergency [facility] Emergency [address] [place] [address] Dizziness (Primary Dx) Discharge Disposition: Home or Self Care Social History Tobacco Use Types Packs/Day Years Used Date Smoking Tobacco: Never Assessed Sex and Gender Information Value Date Recorded Sex Assigned at Male 06/27/2024 2:03 PM EDT Legal Sex Male 9:05 AM EST Gender Identity Male 06/27/2024 2:03 PM EDT Sexual Orientation Straight 06/27/2024 2: 03 PM EDT documented as of this encounter Last Filed Vital Signs Vital Sign Reading Time Taken Comments Blood Pressure 115/77 06/27/2024 4:35 PM EDT Pulse 81 06/27/2024 4:35 PM EDT Temperature 36.7 ??C (98 ??F) 06/27/2024 4:35 PM EDT Respiratory Rate 16 06/27/2024 4:35 PM EDT Oxygen Saturation 100% 06/27/2024 4:35 PM EDT Inhaled Oxygen Concentration - - Weight 76.7 kg (169 lb) 06/27/2024 4:35 PM EDT Height 185.4 cm (6' 1 ) 06/27/2024 4:35 PM EDT Body Mass Index 22.3 06/27/2024 4:35 PM EDT documented in this encounter Discharge Instructions * Discharge Instructions* SONAL Perez - 06/27/2024 4:57 PM EDT You were evaluated in the emergency department today after an episode of dizziness. As discussed all of your results including your lab work, head CT, EKG and physical exam are very reassuring. You are to stay well-hydrated. Please followup with your primary care provider regarding this visit. Please return to the emergency department if you develop new or worsening symptoms. Thank you for coming to the [facility] Emergency Department today. Our entire team works together to provide you with the best care possible. Examination and treatment you received in the emergency department has been rendered on an EMERGENCY basis only. It is not intended to be a substitute for or an effort to provide complete medical care. You should follow-up with your primary care provider. Please report to your physician any new or remaining problems, because it is impossible to recognize and treat all elements of injury or illness in a single emergency department visit. If you do not have a primary care provider or require a referral, you may contact facilities listedbel. In the event that you're unable to obtain a followup appointment in a timely fashion, OR youare not getting any better, OR you are getting worse, OR you develop any symptoms of concern, please return here immediately for further evaluation. The emergency department is open 24 hours a day, 7days a week. Your discharge report is based on information that was available when you were in the emergency department. If you do not have a primary care provider, please contact one of the following to make arrangements to follow up. [place] [place] Kylee [place] Kylee Mcmullen documented in this encounter Discharge Disposition Disposition Code Departure Means Destination Comment s Home or Self Care documented in this encounter Progress Notes * SONAL Perez - 06/27/2024 12:02 PM EDT Emergency Medicine Note Patient Name: Juancarlso Alston Initial Evaluation: 06/27/2024 : 1965 Patient's PCP: Luigi Hayes MD Emergency Physician: SONAL Perez History of Present Illness Chief Complaint: Chief Complaint Patient presents with Dizziness Per ems coming from [place] was sitting down when he started to feel dizzy as if he was going to pass out. Patient states this never happened before , bystanders on scene confirmed no loc, of fall. HPI: This is a 59-year-old male with a past medical history of hypercholesterolemia who presents today via EMS with complaint of dizziness. Patient reports prior to arrival at approximately 11 AM he was sitting in [place] listening to his arm when he developed sudden onset of dizziness like the room was spinning. Reports he closed his eyes and leaned his head against the back wall without relief however symptoms persisted so EMS was called. He reports a similar episode of dizziness last year however it was not as severe. Upon arrival of EMS he was able to ambulate with help to the stretcher. He he denies recent fever, visual changes, chest pain, shortness of breath, cough or cold symptoms, abdominal pain, nausea vomiting, diarrhea, dysuria, weakness, paresthesias. He denies recent injury or trauma, neck or back pain. Currently he is feeling improved he just has a bilateral headache that is throbbing. He denies a history of PE/DVT. ROS: I have performed a ROS with the pertinent positives and negatives documented in the history ofpresent illness. Previous History Past Medical History: Diagnosis Date High cholesterol History reviewed. No pertinent surgical history. No family history on file. has No Known Allergies. No current facility-administered medications on file prior to encounter. No current outpatient medications on file prior to encounter. Physical Exam ED Triage Vitals [06/27/24 1234] Temp Heart Rate Resp BP 36.6 ??C (97.9 ??F) 73 -- 121/79 SpO2 Temp src Heart Rate Source Patient Position 94 % -- -- -- BP Location FiO2 (%) -- -- General: awake, calm, cooperative, in no acute distress. Skin: warm, dry, no diaphoresis. Eyes: PERRLA, EOMI. There is no horizontal vertical, or rotary nystagmus noted. No conjunctival injection, no lid lag noted. ENMT: Oral mucosa is moist, normal phonation, managing secretions. Neck: Trachea midline, full range of motion. No nuchal rigidity or meningismus Respiratory: lungs clear to auscultation bilaterally, no increased work of breathing. Cardiovascular: regular rate and rhythm, no murmur, no peripheral edema. Equal pulses in all four extremities. Gastrointestinal: Soft, nondistended, nontender, without rebound tenderness or guarding. +BS x4 MSK: 5/5 strength upper and lower extremities, extremities warm and well- perfused, sensation intactto light touch. No unilateral edema, no calf pain. Normal capillary refill time. Neurologic: Awake, alert, and oriented x3. CN II through XII intact, NIH stroke scale of 0. Psychiatric: Appropriate mood and affect Results Vitals: 06/27/24 1234 06/27/24 1557 06/27/24 1632 06/27/24 1635 BP: 121/79 122/81 112/74 115/77 BP Location: Right arm Right arm Patient Position: Lying Lying Pulse: 73 73 68 81 Resp: 16 Temp: 36.6 ??C (97.9 ??F) 36.7 ??C (98 ??F) TempSrc: Oral SpO2: 94% 99% 100% Weight: 76.7 kg (169 lb) Height: 1.854 m (73 ) Labs Reviewed BASIC METABOLIC PANEL - Abnormal Result Value Sodium 139 Potassium 4.6 Chloride 106 CO2 28 Anion Gap 5 Glucose 118 (*) BUN 15 Creatinine 1.00 eGFR 86 BUN/Creatinine Ratio 15.0 Calcium 9.1 CBC WITH AUTO DIFFERENTIAL - Abnormal WBC 8.4 RBC 4.60 Hemoglobin 14.4 Hematocrit 42.6 MCV 93.4 MCH 31.6 MCHC 33.8 RDW 13.0 Platelets 159 MPV 11.8 (*) NRBC 0.0 NRBC Absolute 0.00 Neutrophils Relative 62.0 Lymphocytes Relative 27.6 Monocytes Relative 7.5 Eosinophils Relative 1.9 Basophils Relative 0.5 Immature Granulocytes Relative 0.5 Neutrophils Absolute 5.20 Lymphocytes Absolute 2.31 Monocytes Absolute 0.63 Eosinophils Absolute 0.16 Basophils Absolute 0.04 Immature Granulocytes Absolute 0.04 (*) URINALYSIS WITH REFLEX MICROSCOPIC AND CULTURE - Abnormal Specific [place] Urine 1.022 pH, Urine 5.5 Leukocytes, Urine Negative Nitrite, Urine Negative Protein, Urine Trace Glucose, Urine Negative Ketones, Urine Trace (*) Urobilinogen, Urine 1.0 Bilirubin, Urine Negative Blood, Urine Negative POCT GLUCOSE, BLOOD - Abnormal Glucose POCT 124 (*) [id number], RSV, FLU A AND B QUALITATIVE RT-PCR, INTERNAL LAB - Normal Influenza A PCR Not Detected Influenza B PCR Not Detected RSV PCR Not Detected SARS COV-2 Not Detected Narrative: Disclaimer: Testing was performed using the [place] Dep[employer] GeneXpert Xpress SARS-CoV-2 _Flu_RSV PLUS PCR assay. The manner in which this information is used to guide patient care is the responsibility of the healthcare provider. Results should be correlated with the clinical history, epidemiological data,and other data available to the clinician evaluating the patient. Negative results do not preclude infection. This test has been authorized by the FDA under an Emergency Use Authorization (EUA). Thistest is only authorized for the duration of time the declaration that circumstances exist justifying the authorization of the emergency use of in vitro diagnostic tests for detection of SARS-CoV-2 virus and/or diagnosis of COVID-19 infection under section 564 (b) (1) of the Act, 21 U.S.C 360bbb-3 (b) (1), unless the authorization is terminated or revoked sooner. Reference Range: Not Detected Fact sheet for Healthcare providers can be found at https://www.fda.gov/media/464723/download. Fact sheet for Healthcare patients can be found at https://www.fda.gov/media/433049/download. MAGNESIUM - Normal Magnesium 2.0 TROPONIN I HIGH SENSITIVITY - Normal High Sensitivity Troponin I 3 Narrative: High levels of biotin in samples may falsely decrease hsTroponin values. Use caution when interpreting hsTroponin results in patients taking biotin who exhibit renal impairment (eGFR <60) or in patients taking more than 20 mg/day of biotin. TROPONIN I HIGH SENSITIVITY - Normal High Sensitivity Troponin I 3 Narrative: High levels of biotin in samples may falsely decrease hsTroponin values. Use caution when interpreting hsTroponin results in patients taking biotin who exhibit renal impairment (eGFR <60) or in patients taking more than 20 mg/day of biotin. CBC AND DIFFERENTIAL Narrative: The following orders were created for panel order CBC and differential. Procedure Abnormality Status --------- ------ CBC auto differential[[id number]] Abnormal Final result Please view results for these tests on the individual orders. URINALYSIS WITH REFLEX MICROSCOPIC AND CULTURE Narrative: The following orders were created for panel order Urinalysis with reflex microscopic and culture. Procedure Abnormality Status --------- ------ Urinalysis with reflex m...[[id number]] Abnormal Final result Delgado urine culture tube[[id number]] Final result Please view results for these tests on the individual orders. POCT GLUCOSE, BLOOD Abnormal Labs Reviewed BASIC METABOLIC PANEL - Abnormal; Notable for the following components: Result Value Glucose 118 (*) All other components within normal limits CBC WITH AUTO DIFFERENTIAL - Abnormal; Notable for the following components: MPV 11.8 (*) Immature Granulocytes Absolute 0.04 (*) All other components within normal limits URINALYSIS WITH REFLEX MICROSCOPIC AND CULTURE - Abnormal; Notable for the following components: Ketones, Urine Trace (*) All other components within normal limits POCT GLUCOSE, BLOOD - Abnormal; Notable for the following components: Glucose POCT 124 (*) All other components within normal limits CT Head wo Contrast Final Result Impression: No significant intracranial abnormality identified. Hung PRUITT ([id number]) -------- FINAL REPORT -------- Dictated By: Noemi Lund Dictated Date: 06/27/2024 15:55 ET Assigned Physician: Noemi Lund Reviewed and Electronically Signed By: Noemi Lund Signed Date: 06/27/2024 15:57 ET Workstation ID: [id number] Transcribed By: Self Edit Transcribed Date: 06/27/2024 15:55 ET EKG Interpretation EKG shows a normal sinus rhythm at a rate of 75 bpm, incomplete right bundle branch block. No STEMI. No changes from previous from 05/26/2022. Critical Care Time None ? Differential Diagnosis BPPV, CVA, M??ni??re's disease, labyrinthitis, electrolyte derangement, cardiac arrhythmia, viral syndrome Medical Decision Making 59-year-old male presenting via EMS with sudden onset dizziness like he is spinning which has resolved. On exam patient is alert and oriented he is in no acute distress, hemodynamically stable and afebrile. PERRLA, EOMI, CN II through XII intact. NIH SS 0. Cardiopulmonary exams unremarkable, abdominal exam is unremarkable. Patient symptoms of dizziness have resolved although he has a bilateral headache. Labs are unremarkable there is no leukocytosis or CONNOR, first troponin is 3, viral panel is pending. CT head is pending. Medications sodium chloride 0.9 % bolus 1,000 mL (0 mL intravenous Stopped 06/27/24 1742) acetaminophen (TYLENOL) tablet 1,000 mg (1,000 mg oral Given 06/27/24 1619) ED Course as of 06/27/242257 Sun Jun 27, [address] Head wo Contrast No significant intracranial abnormality identified. [BT] 1646 Patient continues to have no dizziness. He has received Tylenol for his headache. His orthostatic vital signs are negative. Viral panel negative. Overall exam very reassuring. Discussed all findings with patient and he expressed understanding. His headache has improved with Tylenol. Will recommend discharge home with PCP follow-up, strict return precautions. He is agreeable with this plan. [BT] ED Course User Index [BT] SONAL Perez Clinical Impressions as of 06/27/242257 Dizziness 1A. Level of Consciousness: Alert, Keenly Responsive 1B. Ask Month and Age: Both Questions Right 1C. Blink Eyes & Squeeze Hands: Performs Both Tasks 2. Best Gaze: Normal 3. Visual: No Visual Loss 4. Facial Palsy: Normal Symmetrical Movements 5A. Motor - Left Arm: No Drift 5B. Motor - Right Arm: No Drift 6A. Motor - Left Leg: No Drift 6B. Motor - Right Leg: No Drift 7. Limb Ataxia: Absent 8. Sensory Loss: Normal 9. Best Language: No Aphasia 10. Dysarthria: Normal 11. Extinction and Inattention: No Abnormality NIH Stroke Scale: 0 Procedures Procedures Diagnosis 1. Dizziness Disposition Discharge ED Prescriptions None Physician Attestation SONAL Perez 06/27/24 1538 SONAL Perez 06/27/24 1608 SONAL Perez 06/27/242257 Cosigned by Kristofer De Paz MD at 06/28/2024 12:18 AM EDT documented in this encounter Miscellaneous Notes * ED Bed Hold Note - Bree Greco RN - 06/27/2024 12:05 PM EDT Bed: OR-35 Expected date: Expected time: Means of arrival: Comments: [place], SYNCOPE, VSS documented in this encounter Plan of Treatment Not on file documented as of this encounter Procedures Procedure Name Priority Date/Time Associated Diagnosis Comments ECG ANNOTATED 06/28/2024 CT HEAD WO CONTRAST STAT 06/27/2024 3 :52 PM EDT [id number], RSV, FLU A AND B QUALITATIVE RT-PCR, INTERNAL LAB STAT 06/27/2024 3:49 PM EDT TROPONIN I HIGH SENSITIVITY STAT 06/27/2024 2:04 PM EDT URINALYSIS WITH REFLEX MICROSCOPIC AND CULTURE STAT 06/27/2024 12:58 PM EDT DELGADO URINE CULTURE TUBE STAT 06/27/2024 12:58 PM EDT URINALYSIS WITH REFLEX MICROSCOPIC AND CULTURE STAT 06/27/2024 12:58 PM EDT TROPONIN I HIGH SENSITIVITY STAT 06/27/2024 12:50 PM EDT CBC WITH AUTO DIFFERENTIAL STAT 06/27/2024 12:50 PM EDT CBC AND DIFFERENTIAL STAT 06/27/2024 12:50 PM EDT MAGNESIUM STAT 06/27/2024 12:50 PM EDT BASIC METABOLIC PANEL STAT 06/27/2024 12:50 PM EDT ECG 12-LEAD STAT 06/27/2024 12:35 PM EDT POCT GLUCOSE BLOOD Routine 06/27/2024 12 :22 PM EDT documented in this encounter Results * ECG-Annotated (06/28/2024) us Provider Onbase MD ECG ORDERABLES Final Result * CT Head wo Contrast (06/27/2024 3:52 PM EDT) Anatomical Region Laterality Modality Head and Neck Computed Tomogra phy 06/27/2024 3:55 PM EDT Impressions 06/27/2024 3:57 PM EDT Impression: No significant intracranial abnormality identified. Telerad SONAL ([id number]) -------- FINAL REPORT -------- Dictated By: Noemi Lund Dictated Date: 06/27/2024 15:55 ET Assigned Physician: Noemi Lund Reviewed and Electronically Signed By: Noemi Lund Signed Date: 06/27/2024 15:57 ET Workstation ID: [id number] Transcribed By: Self Edit Transcribed Date: 06/27/2024 15:55 ET Narrative 06/27/2024 3:57 PM EDT History: Dizziness. Comparison: No comparison imaging at this institution. Technique: Contiguous axial images were obtained at 2.5 mm intervals through the posterior fossa and at 5 mm intervals through the remainder of the brain without intravenous contrast. DLP: 808.85 mGy/cm TapShieldpeCarbonFlow VCT Iterative reconstruction technique Findings: The ventricular system is normal in size and configuration. Delgado-white differentiation is maintained. No abnormal intra- or extra-axial masses or fluid collections are seen. There is no evidence of acute intracranial hemorrhage. The included portions of the paranasal sinuses and mastoid air cells are clear. The calvarium is intact. Procedure Note Nomei Lund MD - 06/27/2024 History: Dizziness. Comparison: No comparison imaging at this institution. Technique: Contiguous axial images were obtained at 2.5 mm intervalsthrough the posterior fossa and at 5 mm intervals through the remainder ofthe brain without intravenous contrast. DLP: 808.85 mGy/cm TapShieldpeCarbonFlow VCT Iterative reconstruction technique Findings: The ventricular system is normal in size and configuration. Delgado- whitedifferentiation is maintained. No abnormal intra- or extra-axial masses orfluid collections are seen. There is no evidence of acute intracranialhemorrhage. The included portions of the paranasal sinuses and mastoid air cells areclear. The calvarium is intact. IMPRESSION: Impression: No significant intracranial abnormality identified. Hung PRUITT ([id number]) -------- FINAL REPORT -------- Dictated By: Noemi Lund Dictated Date: 06/27/2024 15:55 ET Assigned Physician: Noemi Lund Reviewed and Electronically Signed By: Noemi Lund Signed Date: 06/27/2024 15:57 ET Workstation ID: [id number] Transcribed By: Self Edit Transcribed Date: 06/27/2024 15:55 ET [place] [facility] IMG CT PROCEDURES Final Result * [id number], RSV, Influenza A and B qualitative RT-PCR (06/27/2024 3:49 PM EDT) Influenza A PCR Not Detected Not Detected LAB MICROBIOLOGY METHOD 06/27/2024 4:33 PM EDT [facility] Influenza B PCR Not Detected Not Detected LAB MICROBIOLOGY METHOD 06/27/2024 4:33 PM EDT [facility] RSV PCR Not Detected Not Detected LAB MICROBIOLOGY METHOD 06/27/2024 4:33 PM EDT [facility] SARS COV-2 Not Detected Not Detected LAB MICROBIOLOGY METHOD 06/27/2024 4:33 PM EDT [facility] Swab Both anterior nares / Unknown Non-blood Collection / Unknown 06/27/2024 3:49 PM EDT 06/27/2024 3:52 PM EDT Narrative [facility] - 06/27/2024 4:33 PM EDT Disclaimer: ??Testing was performed using the [place] Depoll[employer] GeneXpert Xpress SARS-CoV-2 _Flu_RSV PLUS PCR assay. ??The manner in which this information is used to guide patient care is the responsibility of the healthcare provider. ??Results should be correlated with the clinical history, epidemiological data, and other data available to the clinician evaluating the patient. ??Negative results do not preclude infection. ??This test has been authorized by the FDA under an Emergency Use Authorization (EUA). ??This test is only authorized for the duration of time the declaration that circumstances exist justifying the authorization of the emergency use of in vitro diagnostic tests for detection of SARS-CoV-2 virus and/or diagnosis of COVID-19 infection under section 564 (b) (1) of the Act, 21 U.S.C 360bbb-3 (b) (1), unless the authorization is terminated or revoked sooner. ?? Reference Range: Not Detected Fact sheet for Healthcare providers can be found at https://www.fda.gov/media/818080/download. ?? Fact sheet for Healthcare patients can be found at https://www.fda.gov/media/788220/download. [place] [facility] LAB MICROBIOLOGY - GENERAL ORD ERABLES Final Result [facility] [address] [place] [address], * Troponin I high sensitivity (06/27/2024 2:04 PM EDT) High Sensitivity Troponin I 3 <=79 ng/L LAB CHEMISTRY METHOD 06/27/2024 2:48 PM EDT [facility] Blood Venous blood specimen / Unknown Venipuncture / Unknown 06/27/2024 2:04 PM EDT 06/27/2024 2:22 PM EDT Narrative [facility] - 06/27/2024 2:48 PM EDT High levels of biotin in samples may falsely decrease hsTroponin values. ??Use caution when interpreting hsTroponin results in patients taking biotin who exhibit renal impairment (eGFR <60) or in patients taking more than 20 mg/day of biotin. [facility] LAB BLOOD ORDERABLES Final Res ult Performing Organization Address [facility]/ZIP Co de Phone Number [facility] [address] [place] [address], [place] [phone] * [place]gado urine culture tube (06/27/2024 12:58 PM EDT) [facility] Extra Tube Hold for add-ons. 06/27/2024 3:01 PM EDT [facility] Comment:Auto resulted. Urine Urine specimen obtained by clean catch procedure / Unknown Non-blood Collection / Unknown 06/27/2024 12:58 PM EDT 06/27/2024 1:29 PM EDT [facility] LAB URINE ORDERABLES Final Res ult Performing Organization Address [facility]/ZIP Co de Phone Number [facility] [address] [place] [address], [place] [phone] * (ABNORMAL) Urinalysis with reflex microscopic and culture (06/27/2024 12:58 PM EDT) [facility] Specific [place] Urine 1.022 1.003 - 1.030 LAB URINALYSIS - AUTOMATED METHOD 06/27/2024 1:52 PM EDT [facility] pH, Urine 5.5 5.0 - 8.0 pH LAB URINALYSIS - AUTOMATED METHOD 06/27/2024 1:52 PM EDT [facility] Leukocytes, Urine Negative Negative LAB URINALYSIS - AUTOMATED METHOD 06/27/2024 1:52 PM EDT [facility] Nitrite, Urine Negative Negative LAB URINALYSIS - AUTOMATED METHOD 06/27/2024 1:52 PM EDT [facility] Protein, Urine Trace <=Trace mg/dL LAB URINALYSIS - AUTOMATED METHOD 06/27/2024 1:52 PM EDT [facility] Glucose, Urine Negative Negative mg/dL LAB URINALYSIS - AUTOMATED METHOD 06/27/2024 1:52 PM EDT [facility] Ketones, Urine Trace(A) Negative mg/dL LAB URINALYSIS - AUTOMATED METHOD 06/27/2024 1:52 PM EDT [facility] Urobilinogen, Urine 1.0 0.2 - 1.0 mg/dL LAB URINALYSIS - AUTOMATED METHOD 06/27/2024 1:52 PM EDT [facility] Bilirubin, Urine Negative Negative LAB URINALYSIS - AUTOMATED METHOD 06/27/2024 1:52 PM EDT [facility] Blood, Urine Negative Negative LAB URINALYSIS - AUTOMATED METHOD 06/27/2024 1:52 PM EDT [facility] Urine Urine specimen obtained by clean catch procedure / Unknown Non-blood Collection / Unknown 06/27/2024 12:58 PM EDT 06/27/2024 1:29 PM EDT [facility] [place] [facility] LAB URINE ORDERABLES Final Res ult [facility] [address] [place] [address], * (ABNORMAL) CBC auto differential (06/27/2024 12:50 PM EDT) WBC 8.4 4.8 - 10.8 K/mcL LAB HEMETOLOGY METHOD 06/27/2024 1:33 PM EDT [facility] RBC 4.60 4.50 - 5.50 M/mcL LAB HEMETOLOGY METHOD 06/27/2024 1:33 PM EDT [facility] Hemoglobin 14.4 13.5 - 17.5 g/dL LAB HEMETOLOGY METHOD 06/27/2024 1:33 PM EDT [facility] Hematocrit 42.6 42.0 - 54.0 % LAB HEMETOLOGY METHOD 06/27/2024 1:33 PM EDT [facility] MCV 93.4 79.0 - 98.0 FL LAB HEMETOLOGY METHOD 06/27/2024 1:33 PM [facility] MCH 31.6 27.0 - 32.0 pcg LAB HEMETOLOGY METHOD 06/27/2024 1:33 PM EDT [facility] MCHC 33.8 32.0 - 37.0 g/dL LAB HEMETOLOGY METHOD 06/27/2024 1:33 PM [facility] RDW 13.0 11.0 - 15.0 % LAB HEMETOLOGY METHOD 06/27/2024 1:33 PM [facility] Platelets 159 130 - 400 K/mcL LAB HEMETOLOGY METHOD 06/27/2024 1:33 PM [facility] MPV 11.8(H) 7.0 - 11.0 FL LAB HEMETOLOGY METHOD 06/27/2024 1:33 PM [facility] NRBC 0.0 <1.0 % LAB HEMETOLOGY METHOD 06/27/2024 1:33 PM [facility] NRBC Absolute 0.00 <0.10 K/mcL LAB HEMETOLOGY METHOD 06/27/2024 1:33 PM T [facility] Neutrophils Relative 62.0 % [facility] Lymph[facility] Relative 27.6 % LAB HEMETOLOGY METHOD 06/27/2024 1:33 PM [facility] Monocytes Relative 7.5 % LAB HEMETOLOGY METHOD 06/27/2024 1:33 PM [facility] Eosinophils Relative 1.9 % LAB HEMETOLOGY METHOD 06/27/2024 1:33 PM EDT [facility] Basophils Relative 0.5 % LAB HEMETOLOGY METHOD 06/27/2024 1:33 PM EDT [facility] Immature Granulocytes Relative 0.5 % LAB HEMETOLOGY METHOD 06/27/2024 1:33 PM EDT [facility] Neutrophils Absolute 5.20 1.50 - 7.00 K/mcL LAB HEMETOLOGY METHOD 06/27/2024 1:33 PM EDT [facility] Lymphocytes Absolute 2.31 1.00 - 5.00 K/mcL LAB HEMETOLOGY METHOD 06/27/2024 1:33 PM EDT [facility] Monocytes Absolute 0.63 0.20 - 1.00 K/mcL LAB HEMETOLOGY METHOD 06/27/2024 1:33 PM EDT [facility] Eosinophils Absolute 0.16 0.00 - 0.50 K/mcL LAB HEMETOLOGY METHOD 06/27/2024 1:33 PM EDT [facility] Basophils Absolute 0.04 0.00 - 0.20 K/mcL LAB HEMETOLOGY METHOD 06/27/2024 1:33 PM EDT [facility] Immature Granulocytes Absolute 0.04(H) 0.00 - 0.03 K/mcL LAB HEMETOLOGY METHOD 06/27/2024 1:33 PM EDT [facility] Blood Venous blood specimen / Unknown Venipuncture / Unknown 06/27/2024 12:50 PM EDT 06/27/2024 1:29 PM EDT us [place] PRUITT LAB BLOOD ORDERABLES Final Res ult [facility] [address] [place] [address], * Troponin I high sensitivity (06/27/2024 12:50 PM EDT) [facility] High Sensitivity Troponin I 3 <=79 ng/L LAB CHEMISTRY METHOD 06/27/2024 1:55 PM EDT [facility] Blood Venous blood specimen / Unknown Venipuncture / Unknown 06/27/2024 12:50 PM EDT 06/27/2024 1:29 PM EDT Narrative [facility] - 06/27/2024 1:55 PM EDT High levels of biotin in samples may falsely decrease hsTroponin values. ??Use caution when interpreting hsTroponin results in patients taking biotin who exhibit renal impairment (eGFR <60) or in patients taking more than 20 mg/day of biotin. [place] PRUITT LAB BLOOD ORDERABLES Final Res ult Performing Organization Address City/[facility]/ZIP Co de Phone Number [facility] [address] [place] [address], * Magnesium (06/27/2024 12:50 PM EDT) [facility] Magnesium 2.0 1.9 - 2.6 mg/dL LAB CHEMISTRY METHOD 06/27/2024 1:50 PM EDT [facility] Blood Venous blood specimen / Unknown Venipuncture / Unknown 06/27/2024 12:50 PM EDT 06/27/2024 1:29 PM EDT [facility] [place] LAB BLOOD ORDERABLES Final Res ult [facility] [address] [place] [address], * (ABNORMAL) Basic metabolic panel (06/27/2024 12:50 PM EDT) [facility] Sodium 139 133 - 145 mmol/L LAB CHEMISTRY METHOD 06/27/2024 1:50 PM EDT [facility] Potassium 4.6 3.5 - 5.5 mmol/L LAB CHEMISTRY METHOD 06/27/2024 1:50 PM T [facility] Chloride 106 96 - 110 mmol/L LAB CHEMISTRY METHOD 06/27/2024 1:50 PM [facility] CO2 28 21 - 32 mmol/L LAB CHEMISTRY METHOD 06/27/2024 1:50 PM [facility] Anion Gap 5 3 - 11 LAB CHEMISTRY METHOD 06/27/2024 1:50 PM T [facility] Glucose 118(H) 70 - 100 mg/dL LAB CHEMISTRY METHOD 06/27/2024 1:50 PM [facility] BUN 15 5 - 25 mg/dL LAB CHEMISTRY METHOD 06/27/2024 1:50 PM [facility] Creatinine 1.00 0.70 - 1.30 mg/dL LAB CHEMISTRY METHOD 06/27/2024 1:50 PM EDT [facility] eGFR 86 >=60 mL/min/1. 73m2 LAB CHEMISTRY METHOD 06/27/2024 1:50 PM T [facility] Comment:Calculation based on the??Chronic Kidney Disease Epidemiology Collaboration (CKD-EPI) equation refit??without adjustment for race. BUN/Creatinine Ratio 15.0 LAB CHEMISTR[facility] Calcium 9.1 8.5 - 10.5 mg/dL LAB CHEMISTRY METHOD 06/27/2024 1:50 PM T [facility] Blood Venous blood specimen / Unknown Venipuncture / Unknown 06/27/2024 12:50 PM EDT 06/27/2024 1:29 PM EDT us [place] PRUITT LAB BLOOD ORDERABLES Final Res ult [facility] [address] [place] [address], * ECG 12 lead (06/27/2024 12:35 PM EDT) Ventricular Rate ECG 75 BPM GEMUSE Atrial Rate 75 BPM GEMUSE P-R Interval 174 ms GEMUSE QRS Duration 96 ms GEMUSE Q-T Interval 378 ms GEMUSE QTc 422 ms GEMUSE P Wave [place] 34 degrees GEMUSE R [place] 69 degrees GEMUSE T [place] 44 degrees GEMUSE ECG Interpretation Normal sinus rhythm Incomplete right bundle branch block Borderline ECG When compared with ECG of 26-MAY-2022 13:25, No significant change was found Confirmed by ELDON TORRES ([id number]) on 06/27/2024 5:04:46 PM GEMUSE 06/27/2024 12:3 5 PM EDT 06/27/2024 5:04 PM EDT [place] PRUITT ECG ORDERABLES Final Result GEMUSE * (ABNORMAL) POCT Glucose, blood (06/27/2024 12:22 PM EDT) Glucose POCT 124(H) 70 - 100 mg/dL 06/27/2024 12:22 PM EDT [facility] Blood Capillary blood specimen / Unknown 06/27/2024 12:22 PM EDT 06/27/2024 12:24 PM EDT Generic Provider Poct LAB POINT OF CARE TEST DOCKED DEVICE UNSOLICITED RESULTS Final Result [facility] [address] [place] [address], documented in this encounter Visit Diagnoses Diagnosis Dizziness- Primary Dizziness and giddiness documented in this encounter Administered Medications Inactive Administered Medications - up to 3 most recent administrations Medication Order MAR Action Action Date Dose Rate Site acetaminophen (TYLENOL) tablet 1,000 mg 1,000 mg, oral, Once, On 06/27/24 at 1609, For 1 dose Given 06/27/2024 4:19 PM EDT 1,000 mg sodium chloride 0.9 % bolus 1,000 mL 1,000 mL, intravenous, at 2,000 mL/hr, Administer over 30 Minutes, Once, On 06/27/24 at 1539, For 1 dose New Bag 06/27/2024 3:52 PM EDT 1,000 mL 2000 mL/hr documented in this encounter Active and Recently Administered Medications Times are shown in EDT. Scheduled Medication Order 06/25/2024 06/26/2024 06/27/2024 acetaminophen (TYLENOL) tablet 1,000 mg (COMPLETED) 1,000 mg, oral, Once, On 06/27/24 at 1609, For 1 dose 1619 (Given - Provid er: Susan Ortiz RN) sodium chloride 0.9 % bolus 1,000 mL (COMPLETED) 1,000 mL, intravenous, at 2,000 mL/hr, Administer over 30 Minutes, Once, On 06/27/24 at 1539, For 1 dose 1552 (New Bag - Prov ider: Ananya Garcia RN)[id number] (Stopped - Provider: Ananya Garcia RN) documented in this encounter Orders Lab Orders Without Results Count Last Ordered D ate First Ordered Date POCT GLUCOSE, BLOOD 1 06/27/2024 Nursing Count Last Ordered Date First Orde red Date ORTHOSTATIC BLOOD PRESSURE 1 06/27/2024 VITAL SIGNS 1 06/27/2024 documented in this encounter Additional Health Concerns Infection Onset Date Last Indicated Resolved Time Respiratory Rule-Out 06/27/2024 06/27/2024 025 4:33 PM EDT documented as of this encounter Care Teams [employer] Sales Consultant Relationship Specialty Start Date End Date Luigi Hayes MD [address] [place] [address] PCP - General Internal Medicine 06/27/24 documented as of this encounter
--- OUTSIDE RECORDS SUMMARY | 2024-06-29 19:09 | XMS_ITS | Clinical Summary ---
Author Organization [facility] Address [address] [place] [address] Phone Care Team Providers Care Editor Greeting Card Name Role Phone Luigi Hayes MD Primary Care Provider [phone] Allergies No known active allergies Medications No known medications Active Problems No known active problems Encounters Date Type Department Care Team Description 06/27/2024 12:05 PM EDT - 06/27/2024 6:11 PM EDT Emergency [facility] Emergency [address] [place] [address] Dizziness (Primary Dx) Discharge Disposition: Home or Self Care from Last 3 Months Medical History Medical History Date Comments High cholesterol Social History Tobacco Use Types Packs/Day Years Used Date Smoking Tobacco: Never Assessed Sex and Gender Information Value Date Recorded Sex Assigned at Male 06/27/2024 2:03 PM EDT Legal Sex Male 9:05 AM EST Gender Identity Male 06/27/2024 2:03 PM EDT Sexual Orientation Straight 06/27/2024 2: 03 PM EDT Obstetrics History Last Filed Vital Signs Vital Sign Reading [...] Mass Index 22.3 06/27/2024 4:35 PM EDT Plan of Treatment Health Maintenance Due Date Last Done Comments Pneumococcal Vaccine: 50+ Years (1 of 1 - PCV) 02/27/2014 Zoster Vaccines (1 of 2) 02/27/2014 Cholesterol Screening (Lipid Panel) 03/10/2022 Colorectal Cancer Screening: Colonoscopy 03/10/2022 Depression Screening 03/10/2022 HIV Screening 03/10/2022 Hepatitis C Screening 03/10/2022 Social Influencers of Health Screening 03/10/2022 COVID-19 Vaccine ( season) 2023 01/11/2022, 04/19/2021, 05/17/2020, Additional history exists DTaP,Tdap,and Td Vaccines (2 - Td or Tdap) 05/03/2034 05/03/2024 RSV Immunization Patients 60+ Years Old (1 - 1-dose 75+ series) 02/27/2039 Influenza Vaccine Completed 01/07/2024, , 01/08/2022, Additional history exists HIB Vaccines Aged Out No longer eligi [...] age to complete this topic Pneumococcal Vaccine: Pediatrics (0 to 5 Years) and At-Risk Patients (6 to 64 Years) Aged Out No longer eligible based on patient's age to complete this topic RSV Immunization Patients Under 20 months Aged Out No longer eligible based on patient's age to complete this topic Varicella Vaccines Aged Out No longer eligible based on patient's age to complete this topic Procedures Procedure Name Priority Date/Time Associated Diagnosis Comments ECG ANNOTATED 06/28/2024 CT HEAD WO CONTRAST STAT 06/27/2024 3 :52 PM EDT [id number], RSV, FLU A AND B QUALITATIVE RT-PCR, INTERNAL LAB STAT 06/27/2024 3:49 PM EDT TROPONIN I HIGH SENSITIVITY STAT 06/27/2024 2:04 PM EDT DELGADO URINE CULTURE TUBE STAT 06/27/2024 12:58 PM EDT URINALYSIS WITH REFLEX MICROSCOPIC AND CULTURE STAT 06/27/2024 12:58 PM EDT URINALYSIS WITH REFLEX MICROSCOPIC AND CULTURE STAT 06/27/2024 12:58 PM EDT CBC WITH AUTO DIFFERENTIAL STAT 06/27/2024 12:50 PM EDT TROPONIN I HIGH SENSITIVITY STAT 06/27/2024 12:50 PM EDT MAGNESIUM STAT 06/27/2024 12:50 PM EDT BASIC METABOLIC PANEL STAT 06/27/2024 12:50 PM EDT CBC AND DIFFERENTIAL STAT 06/27/2024 12:50 PM EDT ECG 12-LEAD STAT 06/27/2024 12:35 PM EDT POCT GLUCOSE BLOOD Routine 06/27/2024 12 :22 PM EDT from Last 3 Months Results * ECG-Annotated (06/28/2024) us Provider Onbase MD ECG ORDERABLES Final Result * CT Head wo Contrast (06/27/2024 3:52 PM EDT) Anatomical Region Laterality Modality Head and Neck Computed Tomogra phy 06/27/2024 3:55 PM EDT Impressions 06/27/2024 3:57 PM EDT Impression: No significant intracranial abnormality identified. Telerad PA ([id number]) -------- FINAL REPORT -------- Dictated By: Noemi Lund Dictated Date: 06/27/2024 15:55 ET Assigned Physician: Noemi Lund Reviewed and Electronically Signed By: Noemi Lund Signed Date: 06/27/2024 15:57 ET Workstation ID: [id number] Transcribed By: Self Edit Transcribed Date: 06/27/2024 15:55 ET Narrative 06/27/2024 3:57 PM EDT History: Dizziness. Comparison: No comparison imaging at this institution. Technique: Contiguous axial images were obtained at 2.5 mm intervals through the posterior fossa and at 5 mm intervals through the remainder of the brain without intravenous contrast. DLP: 808.85 mGy/cm GE LightSpeed VCT Iterative reconstruction technique Findings: The ventricular system is normal in size and configuration. Delgado-white differentiation is maintained. No abnormal intra- or extra-axial masses or fluid collections are seen. There is no evidence of acute intracranial hemorrhage. The included portions of the paranasal sinuses and mastoid air cells are clear. The calvarium is intact. Procedure Note Noemi Lund MD - 06/27/2024 History: Dizziness. Comparison: No comparison imaging at this institution. Technique: Contiguous axial images were obtained at 2.5 mm intervalsthrough the posterior fossa and at 5 mm intervals through the remainder ofthe brain without intravenous contrast. DLP: 808.85 mGy/cm GE LightSpeed VCT Iterative reconstruction technique Findings: The ventricular system is normal in size and configuration. Delgado- whitedifferentiation is maintained. No abnormal intra- or extra-axial masses orfluid collections are seen. There is no evidence of acute intracranialhemorrhage. The included portions of the paranasal sinuses and mastoid air cells areclear. The calvarium is intact. IMPRESSION: Impression: No significant intracranial abnormality identified. Telerad PA ([id number]) -------- FINAL REPORT -------- Dictated By: Noemi Lund Dictated Date: 06/27/2024 15:55 ET Assigned Physician: Noemi Lund Reviewed and Electronically Signed By: Noemi Lund Signed Date: 06/27/2024 15:57 ET Workstation ID: [id number] Transcribed By: Self Edit Transcribed Date: 06/27/2024 15:55 ET [place] Birch SONAL IMG CT PROCEDURES Final Result * [id number], RSV, Influenza A and B qualitative RT-PCR (06/27/2024 3:49 PM EDT) Pathologist [facility] Influenza A PCR Not Detected Not Detected LAB MICROBIOLOGY METHOD 06/27/2024 4:33 PM EDT [facility] Influenza B PCR Not Detected Not Detected LAB MICROBIOLOGY METHOD 06/27/2024 4:33 PM EDT [facility] RSV PCR Not Detected Not Detected LAB MICROBIOLOGY METHOD 06/27/2024 4:33 PM EDT [facility] SARS COV-2 Not Detected Not Detected LAB MICROBIOLOGY METHOD 06/27/2024 4:33 PM EDT [facility] Swab Both anterior nares / Unknown Non-blood Collection / Unknown 06/27/2024 3:49 PM EDT 06/27/2024 3:52 PM EDT [facility] - 06/27/2024 4:33 PM EDT Disclaimer: ??Testing was performed using the [employer] GeneXpert Xpress SARS-CoV-2 _Flu_RSV PLUS PCR assay. [...] for Healthcare providers can be found at https://www.fda.gov/media/247647/download. ?? Fact sheet for Healthcare patients can be found at https://www.fda.gov/media/024199/download. [facility] PRUITT LAB MICROBIOLOGY - GENERAL ORD ERABLES Final Result Performing Organization Address [facility]/ZIP Co de Phone Number [facility] [address] [place] [address], [place] [phone] * Troponin I high sensitivity (06/27/2024 2:04 PM EDT) Only the most recent of2 resultswithin the time period is included. [facility] High Sensitivity Troponin I 3 <=79 ng/L LAB CHEMISTRY METHOD 06/27/2024 2:48 PM EDT [facility] Blood Venous blood specimen / Unknown Venipuncture / Unknown 06/27/2024 2:04 PM EDT 06/27/2024 2:22 PM EDT Narrative [facility] - 06/27/2024 2:48 PM EDT High levels of biotin in samples may falsely decrease hsTroponin values. ??Use caution when interpreting hsTroponin results in patients taking biotin who exhibit renal impairment (eGFR <60) or in patients taking more than 20 mg/day of biotin. [place] Birch [place] LAB BLOOD ORDERABLES Final Res ult Performing Organization Address [facility]/ZIP Co de Phone Number [facility] [address] [place] [address], [place] [phone] * (ABNORMAL) Urinalysis with reflex microscopic and culture (06/27/2024 12:58 PM EDT) [facility] Specific [place] Urine 1.022 1.003 - 1.030 LAB URINALYSIS - AUTOMATED METHOD 06/27/2024 1:52 PM EDT [facility] pH, Urine 5.5 5.0 - 8.0 pH LAB URINALYSIS - AUTOMATED METHOD 06/27/2024 1:52 PM EDT [facility] Leukocytes, Urine Negative Negative LAB URINALYSIS - AUTOMATED METHOD 06/27/2024 1:52 PM EDT [facility] Nitrite, Urine Negative Negative LAB URINALYSIS - AUTOMATED METHOD 06/27/2024 1:52 PM EDT [facility] Protein, Urine Trace <=Trace mg/dL LAB URINALYSIS - AUTOMATED METHOD 06/27/2024 1:52 PM EDT [facility] Glucose, Urine Negative Negative mg/dL LAB URINALYSIS - AUTOMATED METHOD 06/27/2024 1:52 PM T [facility] Ketones, Urine Trace(A) Negative mg/dL LAB URINALYSIS - AUTOMATED METHOD 06/27/2024 1:52 PM EDT [facility] Urobilinogen, Urine 1.0 0.2 - 1.0 mg/dL LAB URINALYSIS - AUTOMATED METHOD 06/27/2024 1:52 PM T [facility] Bilirubin, Urine Negative Negative LAB URINALYSIS - AUTOMATED METHOD 06/27/2024 1:52 PM [facility] Blood, Urine Negative Negative LAB URINALYSIS - AUTOMATED METHOD 06/27/2024 1:52 PM T [facility] Urine Urine specimen obtained by clean catch procedure / Unknown Non-blood Collection / Unknown 06/27/2024 12:58 PM EDT 06/27/2024 1:29 PM EDT us [place] PRUITT LAB URINE ORDERABLES Final Res ult [facility] [address] [place] [address], * Delgado urine culture tube (06/27/2024 12:58 PM EDT) Pathologist [facility] Extra Tube Hold for add-ons. 06/27/2024 3:01 PM EDT [facility] Comment:Auto resulted. Urine Urine specimen obtained by clean catch procedure / Unknown Non-blood Collection / Unknown 06/27/2024 12:58 PM EDT 06/27/2024 1:29 PM EDT us [place] PRUITT LAB URINE ORDERABLES Final Res ult [facility] [address] [place] [address], [place] [phone] * (ABNORMAL) CBC auto differential (06/27/2024 12:50 PM EDT) [facility] WBC 8.4 4.8 - 10.8 K/mcL LAB HEMETOLOGY METHOD 06/27/2024 1:33 PM EDT [facility] RBC 4.60 4.50 - 5.50 M/mcL LAB HEMETOLOGY METHOD 06/27/2024 1:33 PM EDT [facility] Hemoglobin 14.4 13.5 - 17.5 g/dL LAB HEMETOLOGY METHOD 06/27/2024 1:33 PM EDT [facility] Hematocrit 42.6 42.0 - 54.0 % LAB HEMETOLOGY METHOD 06/27/2024 1:33 PM EDT [facility] MCV 93.4 79.0 - 98.0 FL LAB HEMETOLOGY METHOD 06/27/2024 1:33 PM EDT [facility] MCH 31.6 27.0 - 32.0 pcg LAB HEMETOLOGY METHOD 06/27/2024 1:33 PM EDT [facility] MCHC 33.8 32.0 - 37.0 g/dL LAB HEMETOLOGY METHOD 06/27/2024 1:33 PM EDT [facility] RDW 13.0 11.0 - 15.0 % LAB HEMETOLOGY METHOD 06/27/2024 1:33 PM EDT [facility] Platelets 159 130 - 400 K/mcL LAB HEMETOLOGY [facility]/27[facility]2024 [facility] MPV 11.8(H) 7.0 - 11.0 FL LAB HEMETOLOGY METHOD 06/27/2024 1:33 PM EDT [facility] NRBC 0.0 <1.0 % LAB HEMETOLOGY METHOD 06/27/2024 1:33 PM EDT [facility] NRBC Absolute 0.00 <0.10 K/mcL LAB HEMETOLOGY METHOD 06/27/2024 1:[facility] Neutrophils Relative 62.0 % LAB HEMETOLOGY METHOD 06/27/2024 1:33 PM EDT [facility] Lymphocytes Relative 27.6 % LAB HEMETOLOGY METHOD 06/27/2024 1:33 PM [facility] Monocytes Relative 7.5 % LAB HEMETOLOGY METHOD 06/27/2024 1:33 PM [facility] Eosinophils Relative 1.9 % LAB HEMETOLOGY METHOD 06/27/2024 1:33 PM [facility] Basophils Relative 0.5 % LAB HEMETOLOGY METHOD 06/27/2024 1:33 PM [facility] Immature Granulocytes Relative 0.5 % LAB HEMETOLOGY METHOD 06/27/2024 1:[facility] Neutrophils Absolute 5.20 1.50 - 7.00 K/mcL LAB HEMETOLOGY METHOD 06/27/2024 1:[facility] Lymphocytes Absolute 2.31 1.00 - 5.00 K/mcL LAB HEMETOLOGY METHOD 06/27/2024 1:33 PM EDT [facility] Monocytes Absolute 0.63 0.20 - 1.00 K/mcL LAB HEMETOLOGY METHOD 06/27/2024 1:33 PM EDT [facility] Eosinophils Absolute 0.16 0.00 - 0.50 K/mcL LAB HEMETOLOGY METHOD 06/27/2024 1:33 PM EDT [facility] Basophils Absolute 0.04 0.00 - 0.20 K/mcL LAB HEMETOLOGY METHOD 06/27/2024 1:33 PM EDT [facility] Immature Granulocytes Absolute 0.04(H) 0.00 - 0.03 K/[facility] LAB HEMETOLOGY METHOD 06/27/2024 1:33 PM EDT [facility] Blood Venous blood specimen / Unknown Venipuncture / Unknown 06/27/2024 12:50 PM EDT 06/27/2024 1:29 PM EDT [facility] [place] [facility] BLOOD ORDERABLES Final Res ult [facility] [address] [place] [address], [place] [phone] * Magnesium (06/27/2024 12:50 PM EDT) Magnesium 2.0 1.9 - 2.6 mg/dL LAB CHEMISTRY METHOD 06/27/2024 1:50 PM EDT [facility] Blood Venous blood specimen / Unknown Venipuncture / Unknown 06/27/2024 12:50 PM EDT 06/27/2024 1:29 PM EDT [place] Birch [place] LAB BLOOD ORDERABLES Final Res ult [facility] [address] [place] [address], [place] [phone] * (ABNORMAL) Basic metabolic panel (06/27/2024 12:50 PM EDT) Sodium 139 133 - 145 mmol/L LAB CHEMISTRY METHOD 06/27/2024 1:50 PM [facility] Potassium 4.6 3.5 - 5.5 mmol/L LAB CHEMISTRY METHOD 06/27/2024 1:50 PM [facility] Chloride 106 96 - 110 mmol/L LAB CHEMISTRY METHOD 06/27/2024 1:50 PM [facility] CO2 28 21 - 32 mmol/L LAB CHEMISTRY METHOD 06/27/2024 1:50 PM [facility] Anion Gap 5 3 - 11 LAB CHEMISTRY METHOD 06/27/2024 1:50 PM [facility] Glucose 118(H) 70 - 100 mg/dL LAB CHEMISTRY METHOD 06/27/2024 1:50 PM [facility] BUN 15 5 - 25 mg/dL LAB CHEMISTRY METHOD 06/27/2024 1:50 PM [facility] Creatinine 1.00 0.70 - 1.30 mg/dL LAB CHEMISTRY METHOD 06/27/2024 1:50 PM [facility] eGFR 86 >=60 mL/min/1. 73m2 LAB CHEMISTRY METHOD 06/27/2024 1:50 PM [facility] Comment:Calculation based on the??Chronic Kidney Disease Epidemiology Collaboration (CKD-EPI) equation refit??without adjustment for race. BUN/Creatinine Ratio 15.0 LAB CHEMISTRY METHOD 06/27/2024 1:50 PM [facility] Calcium 9.1 8.5 - 10.5 mg/dL LAB CHEMISTRY METHOD 06/27/2024 1:50 PM [facility] Blood Venous blood specimen / Unknown Venipuncture / Unknown 06/27/2024 12:50 PM EDT 06/27/2024 1:29 PM EDT [facility] LAB BLOOD ORDERABLES Final Res ult Performing Organization Address City/[facility]/ZIP Co de Phone Number [facility] [address] [place] [address], [place] [phone] * ECG 12 lead (06/27/2024 12:35 PM EDT) Ventricular Rate ECG 75 BPM GEMUSE Atrial Rate 75 BPM GEMUSE P-R Interval 174 ms GEMUSE QRS Duration 96 ms GEMUSE Q-T Interval 378 ms GEMUSE QTc 422 ms GEMUSE P Wave [place] 34 degrees GEMUSE R [place] 69 degrees GEMUSE T [place] 44 degrees GEMUSE ECG Interpretation Normal sinus rhythm Incomplete right bundle branch block Borderline ECG When compared with ECG of 26-MAY-2022 13:25, No significant change was found Confirmed by ELDON TORRES ([id number]) on 06/27/2024 5:04:46 PM GEMUSE 06/27/2024 12:3 5 PM EDT 06/27/2024 5:04 PM EDT [place] PRUITT ECG ORDERABLES Final Result Performing Organization Address [facility] de Phone Number GEMUSE * (ABNORMAL) POCT Glucose, blood (06/27/2024 12:22 PM EDT) Glucose POCT 124(H) 70 - 100 mg/dL 06/27/2024 12:22 PM EDT [facility] Blood Capillary blood specimen / Unknown 06/27/2024 12:22 PM EDT 06/27/2024 12:24 PM EDT us Generic Provider Poct LAB POINT OF CARE TEST DOCKED DEVICE UNSOLICITED RESULTS Final Result Performing Organization Address [facility]/ZIP Co de Phone Number [facility] [address] [place] [address], [place] [phone] from Last 3 Months Insurance [facility] [address] [place] [address] Care Teams Editor Greeting Card Relationship Specialty Start Date End Date Luigi Hayes MD [address] [place] [phone] [place] [address] PCP - General Internal Medicine 06/27/24
--- OUTSIDE RECORDS SUMMARY | 2024-06-29 19:09 | XMS_ITS ---
Author Organization Luigi Hayes MD Address [address] [phone] Care Team Providers Care Centrifugal Spinner Name Role Phone Luigi Hayes Primary Care Provider REASON FOR VISIT Annual Encounters Encounter Location Date Provider Diagnosis Luigi Hayes MD [address] [place] [address] [place] [phone] 02/16/2024 Luigi Hayes Plan Of Treatment Next Appt Details Provider Name:Luigi Hayes , 11/01/2024 03:00:00 PM, [address] [place] [address], [phone], Provider Name:Luigi Hayes , 05/16/2025 03:30:00 PM, [address] [place] [address], [phone], Progress Notes * Juancarlos ALSTONDOB:1965 (59 yo M)Acc No.[id number]:02/16/2024 Progress Notes Patient:?Juancarlos ALSTON Provider:?Luigi Hayes MD :1965???Age:58 Y???Sex:Male Ian e:02/16/2024 Address:[address] [facility] [id number] Subjective: * Chief Complaints: * ???1. Annual. [...] Electronic signature of Ute Hayes MD on 06/29/2024 at 07:08 PM EDT Sign off status: Pending * Provider:?Luigi Hayes MD Date:?02/15 Generated for Edwar james/David/Pauitting on:?06/29/2024 07:08 PM EDT
== END 2024-06-29 16:08 | disposition home or self-care (01) ==
LOC: HO.HUSH 15:18
PROVIDERS: PCP Internal Medicine; Visit Provider Urology
DX: R97.20 Elevated prostate specific antigen [PSA] (principal); N40.1 Benign prostatic hyperplasia with lower urinary tract symptoms
CPT/HCPCS: 99213

== ENCOUNTER → 2024-06-29 15:17 | Outpatient (BNVA) | payer OTHER, SELFPAY | PROVIDERS: PCP Internal Medicine; Visit Provider Urology ==